=== PATIENT | female | born 1960 | race Caucasian/White ===

== ENCOUNTER 2017-12-22 09:07 | Emergency (ER) | payer BC, OTHER ==
[2017-12-22 09:33] LABS: ABS Basophils 0 10^3/ul (0-0.2); ABS Eosinophils 0.1 10^3/ul (0-0.6); ABS Lymphocytes 0.7 10^3/ul (1.0-4.8); ABS Monocytes 0.8 10^3/ul (0-0.8); ABS Neutrophils 11.4 10^3/ul (1.5-7.7); ABS Nucleated RBC 0 10^3/ul; Eosinophil % 0.4 % (0-6); Hematocrit 40 % (35-47); Hemoglobin 13.3 g/dl (12.0-16.0); Lymphocyte % 5.6 % (25-47); Mean Corpuscular HGB Conc 33 g/dl (31-36); Mean Corpuscular Hemoglobin 27 pg (27-31); Mean Corpuscular Volume 81 fL (80-97); Mean Platelet Volume 7 um3 (7.4-10.4); Nucleated Red Blood Cells % 0.1; Platelet Count 231 10^3/ul (150-450); Red Blood Count 4.92 10^6/ul (4.0-5.4); Red Cell Distribution Width 14 % (10.5-15)
[2017-12-22 09:49] LABS: EGFR Non-African American 79.6 (>60)
--- NOTE | 2017-12-22 10:11 | RAD ---
INDICATION: Chest pain COMPARISON: None TECHNIQUE: An AP portable view obtained at 0950 hours is submitted. FINDINGS: Bones/Soft Tissues: There are no acute bony findings. Cardiomediastinal: The cardiomediastinal silhouette is normal. Lungs: There are no infiltrates. Pleura: There are no pleural effusions. Other: None IMPRESSION: NO ACTIVE DISEASE
[2017-12-22] MEDS ORDERED: Ketorolac INJ* 30 MG/ML 1 ML VIAL IV PUSH ONE (10:44)
[2017-12-22 11:06] VITALS: BP 113/71
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
== END 2017-12-22 11:11 | disposition home or self-care (01) ==
LOC: ED 09:07
DX: R07.89 Other chest pain (principal); F17.210 Nicotine dependence, cigarettes, uncomplicated
CPT/HCPCS: 36415; 71045; 80053; 82550; 82553; 83605; 83735; 83874; 83880; 84484; 85025; 85379; 85730; 87502; 93005; 96374; 99283; J1885

== ENCOUNTER 2017-12-23 01:57 | Inpatient (IN) | payer OTHER ==
[2017-12-23] MEDS ORDERED: NS 0.9% 1000 ML* 1,000 ML IV ONE (02:35)
[2017-12-23] MEDS ORDERED: Morphine INJ* 4 MG/ML 1 ML CARPUJECT IV ONE (02:38)
[2017-12-23] MEDS ORDERED: Ondansetron INJ* 2 MG/ML VIAL IV ONE (02:38)
[2017-12-23] MEDS ORDERED: Aspirin TAB* 325 MG PO ONE (02:39)
[2017-12-23 03:26] LABS: ABS Basophils 0 10^3/ul (0-0.2); ABS Eosinophils 0.1 10^3/ul (0-0.6); ABS Lymphocytes 0.6 10^3/ul (1.0-4.8); ABS Monocytes 1.1 10^3/ul (0-0.8); ABS Neutrophils 12.4 10^3/ul (1.5-7.7); ABS Nucleated RBC 0 10^3/ul; Hematocrit 38 % (35-47); Hemoglobin 12.9 g/dl (12.0-16.0); Lymphocyte % 4.2 % (25-47); Mean Corpuscular HGB Conc 34 g/dl (31-36); Mean Corpuscular Hemoglobin 27 pg (27-31); Mean Corpuscular Volume 81 fL (80-97); Mean Platelet Volume 8 um3 (7.4-10.4); Nucleated Red Blood Cells % 0; Platelet Count 236 10^3/ul (150-450); Red Blood Count 4.72 10^6/ul (4.0-5.4); Red Cell Distribution Width 14 % (10.5-15); White Blood Count 14.2 10^3/ul (3.5-10.8)
[2017-12-23 03:45] LABS: INR 1.12 (0.77-1.02)
[2017-12-23] MEDS ORDERED: Morphine INJ* 2 MG/ML 1 ML CARPUJECT IV ONE (04:51)
[2017-12-23] MEDS ORDERED: Senna TAB PO PRN (05:03)
[2017-12-23] MEDS ORDERED: Al Hydrox/Mg Hydrox/Simet LIQ* 30 ML UDC PO PRN ×2 (05:03→06:06)
[2017-12-23] MEDS ORDERED: Ondansetron INJ* 2 MG/ML VIAL IV PRN ×2 (05:03→06:06)
[2017-12-23] MEDS ORDERED: Docusate CAP* 100 MG PO PRN (05:03)
[2017-12-23 05:21] LABS: Urine Appearance Cloudy; Urine Blood Negative (Negative); Urine Color Amber; Urine Ketones 1+ (Negative); Urine Protein 1+(30 mg/dL) (Negative); Urine Specific Gravity 1.026 (1.010-1.030); Urine Urobilinogen Negative (Negative)
[2017-12-23] MEDS ORDERED: cefTRIAXone(*) 1 GM in NS 0.9% 50 ML* 50 ML IVPB ONE (05:33)
[2017-12-23] MEDS ORDERED: Azithromycin IV(*) 500 MG in NS 0.9% 250 ML* 250 ML IVPB ONE (05:34)
[2017-12-23 06:05] LABS: EGFR Non-African American 79.6 (>60)
[2017-12-23] MEDS ORDERED: Albuterol 2.5 MG/3 ML NEB.SOL* (0.083%) INH PRN (06:06)
[2017-12-23] MEDS ORDERED: Morphine INJ* 2 MG/ML 1 ML CARPUJECT IV PRN (06:06)
[2017-12-23] MEDS ORDERED: Ketorolac INJ* 30 MG/ML 1 ML VIAL IV PUSH ONE (06:09)
--- NOTE | 2017-12-23 06:45 | ED ---
Saumya Iqbal Thomas, scribed for Hiram Rodriguez on 12/23/17 at 0233 . HPI Chest Pain - HPI Summary HPI Summary: The patient is a 57 year old female presenting to the emergency department complaining of lower left-sided chest pain that began two days ago. The pain is severe. She was a patient at [facility] [place] and discharged home. The pain is aggravated by palpation and deep breaths. The patient has treated the symptoms with Naproxen prior to arrival. The patient additionally complains of headache. She denies edema. - History of Current Complaint Chief Complaint: EDChestWallPain Time Seen by Provider: 12/23/17 02:27 Hx Obtained From: Patient Onset/Duration: Started Days Ago - 2, Still Present Timing: Constant Current Severity: Severe Pain Intensity: 8 Pain Scale Used: 0-10 Numeric Chest Pain Location: Discrete at: - lower left-sided chest pain Aggravating Factor(s): Deep Breaths, Other: - Palpation Alleviating Factor(s): Nothing Associated Signs and Symptoms: Positive: Chest Pain, Other: - Headache; NEGATIVE : edema - Allergy/Home Medications Allergies/Adverse Reactions: Allergies Allergy/AdvReac Type Severity Reaction Status Date / Time No Known Allergies Allergy Verified 03/11/14 09:00 PMH/Surg Hx/FS Hx/Imm Hx Endocrine/Hematology History: Denies: Hx Diabetes Cardiovascular History: Denies: Hx Hypertension - Cancer History Hx Chemotherapy: No Hx Radiation Therapy: No - Surgical History Surgery Procedure, Year, and Place: bilateral meniscus and ACL repair Infectious Disease History: No Infectious Disease History: Denies: Traveled Outside the [place] in Last 30 Days - Family History Known Family History: Negative: Hypertension, Diabetes - Social History Alcohol Use: None Substance Use Type: Reports: None Smoking Status (MU): Light Every Day Tobacco Smoker Type: Cigarettes Amount Used/How Often: 1/2 PPD Review of Systems Negative: Fever Positive: Chest Pain Negative: Edema Positive: Headache All Other Systems Reviewed And Are Negative: Yes Physical Exam - Summary Physical Exam Summary: Appearance: Well appearing, no pain distress Skin: warm, dry, reflects adequate perfusion Head/face: normal Eyes: EOMI, ELLIE ENT: normal Neck: supple, non-tender Respiratory: CTA, breath sounds present Cardiovascular: RRR, pulses symmetrical Chest: She is tender to the left chest. Abdomen: Soft. She is tender to the epigastric area. Bowel: present Musculoskeletal: normal, strength/ROM intact Neuro: normal, sensory motor intact, A&Ox3 Triage Information Reviewed: Yes Vital Signs On Initial Exam: Initial Vitals Temp Pulse Resp BP Pulse Ox 98.1 F 102 16 95/72 95 12/23/17 02:05 12/23/17 02:05 12/23/17 02:05 12/23/17 02:05 12/23/17 02:05 Vital Signs Reviewed: Yes Diagnostics - Vital Signs Vital Signs Temp Pulse Resp BP Pulse Ox 12/23/17 02:05 98.1 F 102 16 95/72 95 - Laboratory Lab Results: Lab Results 12/23/17 12/23/17 12/23/17 Range/Units 03:03 03:03 03:03 WBC 14.2 H (3.5-10.8) 10^3/ul RBC 4.72 (4.0-5.4) 10^6/ul Hgb 12.9 (12.0-16.0) g/dl Hct 38 (35-47) % MCV 81 (80-97) fL MCH 27 (27-31) pg MCHC 34 (31-36) g/dl RDW 14 (10.5-15) % Plt Count 236 (150-450) 10^3/ul MPV 8 (7.4-10.4) um3 Neut % (Auto) 87.2 H (38-83) % Lymph % (Auto) 4.2 L (25-47) % Snyder % (Auto) 7.4 (1-9) % Eos % (Auto) 1.0 (0-6) % Baso % (Auto) 0.2 (0-2) % Absolute Neuts (auto) 12.4 H (1.5-7.7) 10^3/ul Absolute Lymphs (auto) 0.6 L (1.0-4.8) 10^3/ul Absolute Monos (auto) 1.1 H (0-0.8) 10^3/ul Absolute Eos (auto) 0.1 (0-0.6) 10^3/ul Absolute Basos (auto) 0 (0-0.2) 10^3/ul Absolute Nucleated RBC 0 10^3/ul Nucleated RBC % 0 INR (Anticoag Therapy) 1.12 H (0.77-1.02) APTT 29.3 (26.0-36.3) seconds D-Dimer, Quantitative < 200 (Less Than 230) ng/mL Sodium 136 (133-145) mmol/L Potassium 3.8 (3.5-5.0) mmol/L Chloride 101 (101-111) mmol/L Carbon Dioxide 25 (22-32) mmol/L Anion Gap 10 (2-11) mmol/L BUN 22 (6-24) mg/dL Creatinine 0.75 (0.51-0.95) mg/dL Est GFR ( Amer) 102.4 (>60) Est GFR (Non-Af Amer) 79.6 (>60) BUN/Creatinine Ratio 29.3 H (8-20) Glucose 115 H (70-100) mg/dL Calcium 9.6 (8.6-10.3) mg/dL Total Bilirubin 1.20 H (0.2-1.0) mg/dL AST 19 (13-39) U/L ALT 15 (7-52) U/L Alkaline Phosphatase 71 (34-104) U/L Troponin I 0.01 (<0.04) ng/mL C-Reactive Protein 258.35 H (< 5.00) mg/L Total Protein 6.9 (6.4-8.9) g/dL Albumin 4.0 (3.2-5.2) g/dL Globulin 2.9 (2-4) g/dL Albumin/Globulin Ratio 1.4 (1-3) Lipase < 10 L (11.0-82.0) U/L Urine Color Urine Appearance Urine pH (5-9) Ur Specific [place] (1.010-1.030) Urine Protein (Negative) Urine Ketones (Negative) Urine Blood (Negative) Urine Nitrate (Negative) Urine Bilirubin (Negative) Urine Urobilinogen (Negative) Ur Leukocyte Esterase (Negative) Urine WBC (Auto) (Absent) Urine RBC (Auto) (Absent) Ur Squamous Epith Cells (Absent) Urine Bacteria (Absent) Urine Glucose (Negative) Urine Ascorbic Acid (Negative) 12/23/17 Range/Units 05:00 WBC (3.5-10.8) 10^3/ul RBC (4.0-5.4) 10^6/ul Hgb (12.0-16.0) g/dl Hct (35-47) % MCV (80-97) fL MCH (27-31) pg MCHC (31-36) g/dl RDW (10.5-15) % Plt Count (150-450) 10^3/ul MPV (7.4-10.4) um3 Neut % (Auto) (38-83) % Lymph % (Auto) (25-47) % Snyder % (Auto) (1-9) % Eos % (Auto) (0-6) % Baso % (Auto) (0-2) % Absolute Neuts (auto) (1.5-7.7) 10^3/ul Absolute Lymphs (auto) (1.0-4.8) 10^3/ul Absolute Monos (auto) (0-0.8) 10^3/ul Absolute Eos (auto) (0-0.6) 10^3/ul Absolute Basos (auto) (0-0.2) 10^3/ul Absolute Nucleated RBC 10^3/ul Nucleated RBC % INR (Anticoag Therapy) (0.77-1.02) APTT (26.0-36.3) seconds D-Dimer, Quantitative (Less Than 230) ng/mL Sodium (133-145) mmol/L Potassium (3.5-5.0) mmol/L Chloride (101-111) mmol/L Carbon Dioxide (22-32) mmol/L Anion Gap (2-11) mmol/L BUN (6-24) mg/dL Creatinine (0.51-0.95) mg/dL Est GFR ( Amer) (>60) Est GFR (Non-Af Amer) (>60) BUN/Creatinine Ratio (8-20) Glucose (70-100) mg/dL Calcium (8.6-10.3) mg/dL Total Bilirubin (0.2-1.0) mg/dL AST (13-39) U/L ALT (7-52) U/L Alkaline Phosphatase (34-104) U/L Troponin I (<0.04) ng/mL C-Reactive Protein (< 5.00) mg/L Total Protein (6.4-8.9) g/dL Albumin (3.2-5.2) g/dL Globulin (2-4) g/dL Albumin/Globulin Ratio (1-3) Lipase (11.0-82.0) U/L Urine Color Frannie Urine Appearance Cloudy Urine pH 5.0 (5-9) Ur Specific [place] 1.026 (1.010-1.030) Urine Protein 1+(30 mg/dl) H (Negative) Urine Ketones 1+ H (Negative) Urine Blood Negative (Negative) Urine Nitrate Negative (Negative) Urine Bilirubin Negative (Negative) Urine Urobilinogen Negative (Negative) Ur Leukocyte Esterase Negative (Negative) Urine WBC (Auto) 1+(6-10/hpf) H (Absent) Urine RBC (Auto) 3+(>10/hpf) H (Absent) Ur Squamous Epith Cells Present H (Absent) Urine Bacteria Absent (Absent) Urine Glucose Negative (Negative) Urine Ascorbic Acid * H (Negative) Result Diagrams: 12/23/17 03:03 12/23/17 03:03 Lab Statement: Any lab studies that have been ordered have been reviewed, and results considered in the medical decision making process. - CT CT Abd/Pel CT Interpretation: No Acute Changes - Small moderate-sized left pleural effusion with compressive atelectasis and/or pneumonia. Small pericardial effusion. Small amount of nonspecific pelvic free fluid, possibly physiologic. Dr. Rodriguez has reviewed this report. CT Interpretation Completed By: Radiologist - EKG 03:12 Cardiac Rate: NL EKG Rhythm: Sinus Rhythm - at 81 BPM EKG Interpretation: No acute changes. Chest Pain Course/Dx - Course Assessment/Plan: The patient is a 57 year old female presenting to the emergency department complaining of lower left-sided chest pain that began two days ago. In the ED course the patient was given ASA, IV fluids, morphine, and Zofran. Bloodwork and urinalysis were obtained. EKG shows sinus rhythm. CT Abd/ Pel shows Small moderate-sized left pleural effusion with compressive atelectasis and/or pneumonia. Small pericardial effusion. Small amount of nonspecific pelvic free fluid, possibly physiologic. The patient is diagnosed with pneumonia, pleural effusion, and chest pain rule out LA. The patient will be admitted by Dr. Franco. - Chest Pain Differential Diagnosis/HQI/PQRI: Acute LA, ACS, Chest Wall, Lower Respiratory Infection, Other: - pneumonia - Diagnoses Provider Diagnoses: Pneumonia, Pleural effusion, Chest pain, rule out acute myocardial infarction - Provider Notifications Discussed Care Of Patient With: Peyton Franco Time Discussed With Above Provider: 06:38 Instructed by Provider To: Admit As Inpatient Discharge - Discharge Plan Condition: Fair Disposition: ADMITTED TO [facility] Discharge Disposition Comment: By Dr. Franco. The documentation as recorded by the Saumya resendez Thomas accurately reflects the service I personally performed and the decisions made by , Hiram Rodriguez.
--- NOTE | 2017-12-23 08:21 | RAD ---
CLINICAL HISTORY: Left chest and flank pain COMPARISON: None TECHNIQUE: Noncontrast CT examination of the abdomen and pelvis from the lung bases through the initial tuberosities. FINDINGS: VISUALIZED LUNG BASES: There is a small left-sided pleural effusion with pleural-based linear density. The lesser extent there is pleural-based linear density at the right lung base with a small pleural-based nodular component. Small pericardial effusion. Bilateral breast prostheses are partially visualized ABDOMEN AND PELVIS: Evaluation of the solid organs and vasculature is limited without intravenous contrast. The liver, spleen, pancreas and adrenal glands are grossly normal in appearance. The gallbladder is normal. The kidneys are normal in appearance without focal mass, calcification or signs of hydronephrosis. Evaluation of the gastrointestinal tract is limited without oral contrast. The small and large bowel are not distended. A 7 mm partially gas-filled structure in the right lower quadrant of the base of the cecum most likely represents the normal appendix. There is a small amount of free fluid in the pelvis. There is no gross retroperitoneal or mesenteric lymphadenopathy. The pelvic viscera is normal in appearance. The abdominal aorta and iliac arteries are normal in course and diameter. Degenerative changes include multilevel loss of intervertebral disc height involving the lower thoracic and lumbar spine.There are no sinister bone lesions. IMPRESSION: 1. Small to moderate left-sided pleural effusion with bibasilar atelectasis. 2. Small pericardial effusion. 3. Small amount of free fluid in the pelvis which could be physiologic in a woman who is still undergoing menstrual cycles. Please correlate to menstrual status.
[2017-12-23] MEDS: oxyCODONE/Acetamin 5/325 MG* TAB PO PRN ×4 (09:04→22:32)
[2017-12-23] MEDS: NS 0.9% 1000 ML* 1,000 ML IV SCH ×2 (09:04→19:30)
--- NOTE | 2017-12-23 10:53 | HP ---
CC: Michelle Arevalo NP HISTORY AND PHYSICAL: DATE OF ADMISSION: 12/23/17 TIME OF EVALUATION: 0600 PRIMARY CARE PHYSICIAN: Michelle Arevalo NP CHIEF COMPLAINT: Left-sided chest pain. HISTORY OF PRESENT ILLNESS: This is a 57-year-old female with an unremarkable past medical history except for tobacco use, who presents to the emergency room for the second time in 2 days for left-sided chest pain. The patient states she had an upper respiratory illness about a week ago. She was taking care of her daughter who was in an MVA and she thinks she overdid it. She had a sore throat and a cough at that time. In the past 2 to 3 days, she is having difficulty taking a deep breath with significant left-sided chest pain. Now, today, she started with a productive cough. She has not been able to smoke in the past 10 days due to her illness. She has had fevers and chills and significant left-sided chest pain, now a shoulder pain on the left side. No shortness of breath. No nausea, vomiting, abdominal pain or diarrhea. No lower extremity swelling. No rash. Otherwise, review of systems is negative. In the emergency room, the patient had labs, imaging, was referred to the hospitalist service for further evaluation. In the ER, she was given aspirin 325 mg, ceftriaxone 1 g, a total of 6 mg of morphine, Zofran 4 mg, and a liter of fluid. PAST MEDICAL HISTORY: Tobacco use. MEDICATIONS: Was prescribed naproxen when she came to the emergency room on . ALLERGIES: No known drug allergies. FAMILY HISTORY: No family history of blood clots. SOCIAL HISTORY: The patient lives alone. 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 She smokes off and on for the past 25 years, recently she is down to 5 to 6 cigarettes per day. Her healthcare proxy is her son, Tian Lugo. No alcohol use or illicit drug use. REVIEW OF SYSTEMS: A 14-point review of systems as mentioned in the HPI; otherwise, negative. PHYSICAL EXAMINATION GENERAL: No acute distress. She appears uncomfortable. VITAL SIGNS: Temp 98.1, pulse rate 98, respiratory rate 18, oxygen saturation 95% on room air, blood pressure 102/64. HEENT: Head normocephalic. Pupils equal and reactive. Anicteric. Oropharynx : Mucous membranes moist. NECK: Supple. No lymphadenopathy. RESPIRATORY: Poor aeration. No increased work of breathing. Faint rhonchi in the left side. CARDIAC: Regular rate and rhythm. Soft systolic murmur heard throughout. ABDOMEN: Soft, nondistended, nontender. EXTREMITIES: No clubbing, cyanosis, or edema. +1 DPs. NEUROLOGIC: Alert and oriented x3. No focal neurological deficits. MUSCULOSKELETAL: The patient with tenderness in intercostal regions on the left side from the posterior, wrapping around intercostally in the mid and upper intercostal regions. DIAGNOSTIC STUDIES/LAB DATA: White count 14.2, hemoglobin 12.9, hematocrit 38 , platelets 236. INR is 1.12. D-dimer is less than 200. Sodium 136, potassium 3.8, chloride 101, bicarb 25, BUN 22, creatinine 0.75, glucose 115. Total bili 1.21. CRP is 258. Troponin is 0.01. Lipase is less than 10. Abdomen and pelvis CT shows small to moderate size left pleural effusion with left basilar atelectasis and/or pneumonia, small pericardial effusion is noted; otherwise, unremarkable. ASSESSMENT: This is a 57-year-old female with past medical history of tobacco use with recent upper respiratory infection illness, now comes in with persistent left- sided chest pain; this is her second ED visit in 2 days. 1. Left-sided chest pain. Assessment: Now, patient with [id number] effusion, likely possibly a parapneumonic effusion. She does have a white count and elevated CRP. I suspect that she had a URI illness and then developed some costochondritis that developed into atelectasis and secondary pneumonia with an effusion. The patient is in a significant amount of discomfort with limited mobility and unable to care for herself. Her D-dimer is negative, which has ruled out pulmonary emboli. Plan: We will admit her to telemetry to continue to trend her troponin. We will start her on Toradol and morphine, IV fluids. Continue on azithromycin and ceftriaxone for community-acquired pneumonia. We will check a procalcitonin. I did put in for an ultrasound thoracentesis for diagnostic and possible therapeutic benefit. We will also swab her for influenza. Incentive spirometer. 2. Chronic medical problem: Tobacco use. The patient has not smoked in 10 days. No indication for inhaler. 3. FEN: Place her on a regular diet. 4. DVT prophylaxis: The patient scored low risk. We will encourage ambulation. 5. Code status: Full code. PATIENT TIME: Greater than 60 minutes spent doing the history and physical, more than half time spent in direct patient contact. [id number]/CPS #: [id number] MTDD
--- NOTE | 2017-12-23 12:10 | PN ---
Hospitalist Progress Note Date of Service: 12/23/17 I have seen and examined Ms. Lugo and assume her care today. She feels a little better this morning after receiving percocet. She continues to complain of a productive cough and left sided chest wall pain in the midaxillary line with inspiration. Pain is unchanged with position, and she has been afebrile overnight. On exam, she is in a regular rate and rhythm without a pericardial rub, her lungs are clear, and there is no point tenderness on her ribs. She has no pharyngeal exudates or cervical lymphadenopathy or JVP. A/P: Ms. Lugo presents with left sided chest wall pain with inspiration and a recent viral syndrome. Her history is consistent with viral pleurisy, and I will continue to treat her with supportive measures at this time. With this history, there isn't yet an indication for a thoracentesis, but I explained that she should have a repeat CT in 4-6 weeks to re-evaluate it. She follows with [facility]. I have low suspicion for an empyema that would warrant thoracentesis/chest tube. Check sputum cultures, though her history seems viral. Check flu swab, continue pain control.
[2017-12-24] MEDS: oxyCODONE/Acetamin 5/325 MG* TAB PO PRN ×2 (03:43→09:44)
[2017-12-24] MEDS: NS 0.9% 1000 ML* 1,000 ML IV SCH ×2 (03:45→15:38)
[2017-12-24] MEDS: Senna TAB PO PRN ×2 (03:51→15:47)
[2017-12-24] MEDS: Docusate CAP* 100 MG PO PRN ×2 (03:51→15:48)
[2017-12-24] MEDS: Ketorolac INJ* 30 MG/ML 1 ML VIAL IV PUSH PRN ×2 (03:52→15:37)
[2017-12-24] MEDS: cefTRIAXone(*) 1 GM in NS 0.9% 50 ML* 50 ML IVPB SCH (05:34)
[2017-12-24 05:58] LABS: ABS Basophils 0 10^3/ul (0-0.2); ABS Eosinophils 0.2 10^3/ul (0-0.6); ABS Lymphocytes 0.5 10^3/ul (1.0-4.8); ABS Monocytes 1.2 10^3/ul (0-0.8); ABS Neutrophils 11.4 10^3/ul (1.5-7.7); ABS Nucleated RBC 0 10^3/ul; Eosinophil % 1.3 % (0-6); Hematocrit 35 % (35-47); Hemoglobin 11.6 g/dl (12.0-16.0); Lymphocyte % 3.6 % (25-47); Mean Corpuscular HGB Conc 33 g/dl (31-36); Mean Corpuscular Hemoglobin 27 pg (27-31); Mean Corpuscular Volume 82 fL (80-97); Mean Platelet Volume 8 um3 (7.4-10.4); Nucleated Red Blood Cells % 0; Platelet Count 220 10^3/ul (150-450); Red Blood Count 4.31 10^6/ul (4.0-5.4); Red Cell Distribution Width 14 % (10.5-15); White Blood Count 13.3 10^3/ul (3.5-10.8)
[2017-12-24] MEDS: Azithromycin IV(*) 250 MG in NS 0.9% 250 ML* 250 ML IVPB SCH (06:08)
[2017-12-24 06:09] LABS: EGFR Non-African American 97.4 (>60)
[2017-12-24] MEDS: Acetaminophen TAB* 325 MG PO PRN (15:37)
--- NOTE | 2017-12-24 16:54 | RAD ---
INDICATION: Effusion. COMPARISON: Comparison is made with a prior chest x-ray study from December 22, [address] of the abdomen and pelvis from December 23, 2017. TECHNIQUE: 2 portable films of the chest were obtained upright. FINDINGS: The left heart border is obscured by a left pleural effusion and infiltrate present in the mid and lower left lung field appears new from the prior chest x-ray study. The right lung appears clear. IMPRESSION: NEW MODERATE-SIZED LEFT PLEURAL EFFUSION AND INFILTRATE. RECOMMEND FOLLOW-UP CHEST X-RAYS TO RESOLUTION.
[2017-12-24] MEDS: ALPRAZolam TAB* 0.25 MG PO PRN (20:28)
[2017-12-25] MEDS: Ketorolac INJ* 30 MG/ML 1 ML VIAL IV PUSH PRN ×2 (00:39→11:44)
[2017-12-25] MEDS: cefTRIAXone(*) 1 GM in NS 0.9% 50 ML* 50 ML IVPB SCH (05:55)
[2017-12-25] MEDS: Azithromycin IV(*) 250 MG in NS 0.9% 250 ML* 250 ML IVPB SCH (07:27)
[2017-12-25] MEDS: Docusate CAP* 100 MG PO PRN (07:27)
[2017-12-25] MEDS: oxyCODONE/Acetamin 5/325 MG* TAB PO PRN (07:27)
[2017-12-25] MEDS: Senna TAB PO PRN (07:27)
--- NOTE | 2017-12-25 08:44 | PN ---
Progress Note - Progress Note Date of Service: 12/25/17 Note: Brief Surgical Note: Patient was seen at bedside by request of Dr. Garza for evaluation of left pleural effusion. Reports left pleuritic chest pain, worse with deep inspiration. Denies SOB, substernal chest pain, fever or chills. Has had some productive cough. CXR yesterday with increased left pleural effusion noted. Lungs with decreased breath sounds at left lower base, but no rales or rhonchi. Labs noted Imp/Plan: Left pleural effusion of unclear etiology. Will discuss with Dr. Richter Likely to proceed with left thoracocentesis today, patient understands and agrees to plans
--- NOTE | 2017-12-25 16:09 | RAD ---
INDICATION: Status post thoracentesis. COMPARISON: Comparison is made with a prior chest x-ray study from December 24, 2017. TECHNIQUE: A portable view of the chest was obtained. FINDINGS: The left heart border is obscured by a dense infiltrate and pleural effusion. There is an infiltrate in the mid and lower left lung field which appears unchanged and suggestion of a pleural effusion. No pneumothorax is seen. IMPRESSION: LEFT LUNG INFILTRATE AND PLEURAL EFFUSION, UNCHANGED. RECOMMEND FOLLOW-UP CHEST X-RAYS TO RESOLUTION.
[2017-12-25] MEDS: Acetaminophen TAB* 325 MG PO PRN (16:35)
--- NOTE | 2017-12-25 17:04 | PN ---
Subjective Date of Service: 12/24/17 Interval History: still with pain with deep inspiration that is not controlled on percocet. She is tearful, anxious. Her ring had to be cut off this morning because she was so anxious about it being stuck on. Family History: Unchanged from Admission Social History: Unchanged from Admission Past Medical History: Unchanged from Admission Objective Active Medications: Acetaminophen (Tylenol Tab*) 650 mg PO Q4H PRN PRN Reason: FEVER/PAIN Last Admin: 12/25/17 16:35 Dose: 650 mg Al Hydrox/Mg Hydrox/Simethicone (Maalox Plus*) 30 ml PO Q6H PRN PRN Reason: INDIGESTION Albuterol (Ventolin 2.5 Mg/3 Ml Neb.Nohelia*) 2.5 mg INH [id number] AWAKE PRN PRN Reason: sob/wheezing Alprazolam (Xanax Tab*) 0.25 mg PO Q8H PRN PRN Reason: ANXIETY Last Admin: 12/24/17 20:28 Dose: 0.25 mg Docusate Sodium (Colace Cap*) 100 mg PO BID PRN PRN Reason: CONSTIPATION Last Admin: 12/25/17 07:27 Dose: 100 mg Ceftriaxone Sodium 1 gm/ (Sodium Chloride) 50 mls @ 200 mls/hr IVPB Q24H [facility] Last Admin: 12/25/17 05:55 Dose: 200 mls/hr Azithromycin 250 mg/ Sodium (Chloride) 250 mls @ 250 mls/hr IVPB Q24H [facility] Last Admin: 12/25/17 07:27 Dose: 250 mls/hr Ketorolac Tromethamine (Toradol Inj*) 30 mg IV PUSH Q6H PRN PRN Reason: PAIN Last Admin: 12/25/17 11:44 Dose: 30 mg Morphine Sulfate (Morphine Inj (Syringe)*) 2 mg IV Q4H PRN PRN Reason: PAIN Ondansetron HCl (Zofran Inj*) 4 mg IV Q4H PRN PRN Reason: NAUSEA/VOMITING Oxycodone/Acetaminophen (Percocet 5/325 Tab*) 1 tab PO Q4H PRN PRN Reason: Pain Last Admin: 12/25/17 07:27 Dose: 1 tab Senna (Senokot Tab*) 1 tab PO BID PRN PRN Reason: CONSTIPATION Last Admin: 12/25/17 07:27 Dose: 1 tab Oxygen Devices in Use Now: None Appearance: no distress, nontoxic Eyes: No Scleral Icterus Ears/Nose/Mouth/Throat: NL Teeth, Lips, Gums Neck: NL Appearance and Movements; NL JVP Respiratory: - - decreased breath sounds right lower lung field [facility] up Cardiovascular: RRR Abdominal: NL Sounds; No Tenderness; No Distention Lymphatic: No Cervical Adenopathy Result Diagrams: 12/24/17 05:21 12/24/17 05:21 Additional Lab and Data: Lab Results 12/23/17 12/23/17 12/23/17 Range/Units 03:03 03:03 03:03 WBC 14.2 H (3.5-10.8) 10^3/ul RBC 4.72 (4.0-5.4) 10^6/ul Hgb 12.9 (12.0-16.0) g/dl Hct 38 (35-47) % MCV 81 (80-97) fL MCH 27 (27-31) pg MCHC 34 (31-36) g/dl RDW 14 (10.5-15) % Plt Count 236 (150-450) 10^3/ul MPV 8 (7.4-10.4) um3 Neut % (Auto) 87.2 H (38-83) % Lymph % (Auto) 4.2 L (25-47) % [place] % (Auto) 7.4 (1-9) % Eos % (Auto) 1.0 (0-6) % Baso % (Auto) 0.2 (0-2) % Absolute Neuts (auto) 12.4 H (1.5-7.7) 10^3/ul Absolute Lymphs (auto) 0.6 L (1.0-4.8) 10^3/ul Absolute Monos (auto) 1.1 H (0-0.8) 10^3/ul Absolute Eos (auto) 0.1 (0-0.6) 10^3/ul Absolute Basos (auto) 0 (0-0.2) 10^3/ul Absolute Nucleated RBC 0 10^3/ul Nucleated RBC % 0 INR (Anticoag Therapy) 1.12 H (0.77-1.02) APTT 29.3 (26.0-36.3) seconds D-Dimer, Quantitative < 200 (Less Than 230) ng/mL Sodium 136 (133-145) mmol/L Potassium 3.8 (3.5-5.0) mmol/L Chloride 101 (101-111) mmol/L Carbon Dioxide 25 (22-32) mmol/L Anion Gap 10 (2-11) mmol/L BUN 22 (6-24) mg/dL Creatinine 0.75 (0.51-0.95) mg/dL Est GFR ( Amer) 102.4 (>60) Est GFR (Non-Af Amer) 79.6 (>60) BUN/Creatinine Ratio 29.3 H (8-20) Glucose 115 H (70-100) mg/dL Calcium 9.6 (8.6-10.3) mg/dL Total Bilirubin 1.20 H (0.2-1.0) mg/dL AST 19 (13-39) U/L ALT 15 (7-52) U/L Alkaline Phosphatase 71 (34-104) U/L Troponin I 0.01 (<0.04) ng/mL C-Reactive Protein 258.35 H (< 5.00) mg/L Total Protein 6.9 (6.4-8.9) g/dL Albumin 4.0 (3.2-5.2) g/dL Globulin 2.9 (2-4) g/dL Albumin/Globulin Ratio 1.4 (1-3) Lipase < 10 L (11.0-82.0) U/L Urine Color Urine Appearance Urine pH (5-9) Ur Specific [place] (1.010-1.030) Urine Protein (Negative) Urine Ketones (Negative) Urine Blood (Negative) Urine Nitrate (Negative) Urine Bilirubin (Negative) Urine Urobilinogen (Negative) Ur Leukocyte Esterase (Negative) Urine WBC (Auto) (Absent) Urine RBC (Auto) (Absent) Ur Squamous Epith Cells (Absent) Urine Bacteria (Absent) Urine Glucose (Negative) Urine Ascorbic Acid (Negative) 12/23/17 Range/Units 05:00 WBC (3.5-10.8) 10^3/ul RBC (4.0-5.4) 10^6/ul Hgb (12.0-16.0) g/dl Hct (35-47) % MCV (80-97) fL MCH (27-31) pg MCHC (31-36) g/dl RDW (10.5-15) % Plt Count (150-450) 10^3/ul MPV (7.4-10.4) um3 Neut % (Auto) (38-83) % Lymph % (Auto) (25-47) % [place] % (Auto) (1-9) % Eos % (Auto) (0-6) % Baso % (Auto) (0-2) % Absolute Neuts (auto) (1.5-7.7) 10^3/ul Absolute Lymphs (auto) (1.0-4.8) 10^3/ul Absolute Monos (auto) (0-0.8) 10^3/ul Absolute Eos (auto) (0-0.6) 10^3/ul Absolute Basos (auto) (0-0.2) 10^3/ul Absolute Nucleated RBC 10^3/ul Nucleated RBC % INR (Anticoag Therapy) (0.77-1.02) APTT (26.0-36.3) seconds D-Dimer, Quantitative (Less Than 230) ng/mL Sodium (133-145) mmol/L Potassium (3.5-5.0) mmol/L Chloride (101-111) mmol/L Carbon Dioxide (22-32) mmol/L Anion Gap (2-11) mmol/L BUN (6-24) mg/dL Creatinine (0.51-0.95) mg/dL Est GFR ( Amer) (>60) Est GFR (Non-Af Amer) (>60) BUN/Creatinine Ratio (8-20) Glucose (70-100) mg/dL Calcium (8.6-10.3) mg/dL Total Bilirubin (0.2-1.0) mg/dL AST (13-39) U/L ALT (7-52) U/L Alkaline Phosphatase (34-104) U/L Troponin I (<0.04) ng/mL C-Reactive Protein (< 5.00) mg/L Total Protein (6.4-8.9) g/dL Albumin (3.2-5.2) g/dL Globulin (2-4) g/dL Albumin/Globulin Ratio (1-3) Lipase (11.0-82.0) U/L Urine Color Frannie Urine Appearance Cloudy Urine pH 5.0 (5-9) Ur Specific [place] 1.026 (1.010-1.030) Urine Protein 1+(30 mg/dl) H (Negative) Urine Ketones 1+ H (Negative) Urine Blood Negative (Negative) Urine Nitrate Negative (Negative) Urine Bilirubin Negative (Negative) Urine Urobilinogen Negative (Negative) Ur Leukocyte Esterase Negative (Negative) Urine WBC (Auto) 1+(6-10/hpf) H (Absent) Urine RBC (Auto) 3+(>10/hpf) H (Absent) Ur Squamous Epith Cells Present H (Absent) Urine Bacteria Absent (Absent) Urine Glucose Negative (Negative) Urine Ascorbic Acid * H (Negative) Assess/Plan/Problems-Billing Assessment: - Patient Problems (1) Pleural effusion Current Visit: Yes Status: Acute Code(s): J90 - PLEURAL EFFUSION, NOT ELSEWHERE CLASSIFIED SNOMED Code(s): 81580509 Comment: Thought to be viral pleurisy, but pain is ongoing, she has some orthopnea, I think it's worthwhile to pursue a thoracentesis tomorrow, especially given her smoking history so we can check cytology. Remains nontoxic ; doubt empyema. (2) Anxiety Current Visit: Yes Status: Acute Code(s): F41.9 - ANXIETY DISORDER, UNSPECIFIED SNOMED Code(s): 50525649 Comment: she declines medications; will add xanax prn
--- NOTE | 2017-12-25 17:06 | PN ---
Subjective Date of Service: 12/25/17 Interval History: Still with severe pain on inspiration, 5 pillow orthopnea. I saw her again after her thoracentesis, and she is feeling much better, able to take a full breath Family History: Unchanged from Admission Social History: Unchanged from Admission Past Medical History: Unchanged from Admission Objective Active Medications: Acetaminophen (Tylenol Tab*) 650 mg PO Q4H PRN PRN Reason: FEVER/PAIN Last Admin: 12/25/17 16:35 Dose: 650 mg Al Hydrox/Mg Hydrox/Simethicone (Maalox Plus*) 30 ml PO Q6H PRN PRN Reason: INDIGESTION Albuterol (Ventolin 2.5 Mg/3 Ml Neb.Nohelia*) 2.5 mg INH [id number] AWAKE PRN PRN Reason: sob/wheezing Alprazolam (Xanax Tab*) 0.25 mg PO Q8H PRN PRN Reason: ANXIETY Last Admin: 12/24/17 20:28 Dose: 0.25 mg Docusate Sodium (Colace Cap*) 100 mg PO BID PRN PRN Reason: CONSTIPATION Last Admin: 12/25/17 07:27 Dose: 100 mg Ceftriaxone Sodium 1 gm/ (Sodium Chloride) 50 mls @ 200 mls/hr IVPB Q24H [facility] Last Admin: 12/25/17 05:55 Dose: 200 mls/hr Azithromycin 250 mg/ Sodium (Chloride) 250 mls @ 250 mls/hr IVPB Q24H [facility] Last Admin: 12/25/17 07:27 Dose: 250 mls/hr Ketorolac Tromethamine (Toradol Inj*) 30 mg IV PUSH Q6H PRN PRN Reason: PAIN Last Admin: 12/25/17 11:44 Dose: 30 mg Morphine Sulfate (Morphine Inj (Syringe)*) 2 mg IV Q4H PRN PRN Reason: PAIN Ondansetron HCl (Zofran Inj*) 4 mg IV Q4H PRN PRN Reason: NAUSEA/VOMITING Oxycodone/Acetaminophen (Percocet 5/325 Tab*) 1 tab PO Q4H PRN PRN Reason: Pain Last Admin: 12/25/17 07:27 Dose: 1 tab Senna (Senokot Tab*) 1 tab PO BID PRN PRN Reason: CONSTIPATION Last Admin: 12/25/17 07:27 Dose: 1 tab Oxygen Devices in Use Now: None Appearance: alert, nontoxic Eyes: No Scleral Icterus Ears/Nose/Mouth/Throat: NL Teeth, Lips, Gums Neck: NL Appearance and Movements; NL JVP Respiratory: Symmetrical Chest Expansion and Respiratory Effort, Clear to Auscultation Cardiovascular: NL Sounds; No Murmurs; No JVD, RRR Abdominal: NL Sounds; No Tenderness; No Distention Lymphatic: No Cervical Adenopathy Extremities: No Edema Neurological: Alert and Oriented x 3 Result Diagrams: 12/24/17 05:21 12/24/17 05:21 Additional Lab and Data: Lab Results 12/23/17 12/23/17 12/23/17 Range/Units 03:03 03:03 03:03 WBC 14.2 H (3.5-10.8) 10^3/ul RBC 4.72 (4.0-5.4) 10^6/ul Hgb 12.9 (12.0-16.0) g/dl Hct 38 (35-47) % MCV 81 (80-97) fL MCH 27 (27-31) pg MCHC 34 (31-36) g/dl RDW 14 (10.5-15) % Plt Count 236 (150-450) 10^3/ul MPV 8 (7.4-10.4) um3 Neut % (Auto) 87.2 H (38-83) % Lymph % (Auto) 4.2 L (25-47) % [place] % (Auto) 7.4 (1-9) % Eos % (Auto) 1.0 (0-6) % Baso % (Auto) 0.2 (0-2) % Absolute Neuts (auto) 12.4 H (1.5-7.7) 10^3/ul Absolute Lymphs (auto) 0.6 L (1.0-4.8) 10^3/ul Absolute Monos (auto) 1.1 H (0-0.8) 10^3/ul Absolute Eos (auto) 0.1 (0-0.6) 10^3/ul Absolute Basos (auto) 0 (0-0.2) 10^3/ul Absolute Nucleated RBC 0 10^3/ul Nucleated RBC % 0 INR (Anticoag Therapy) 1.12 H (0.77-1.02) APTT 29.3 (26.0-36.3) seconds D-Dimer, Quantitative < 200 (Less Than 230) ng/mL Sodium 136 (133-145) mmol/L Potassium 3.8 (3.5-5.0) mmol/L Chloride 101 (101-111) mmol/L Carbon Dioxide 25 (22-32) mmol/L Anion Gap 10 (2-11) mmol/L BUN 22 (6-24) mg/dL Creatinine 0.75 (0.51-0.95) mg/dL Est GFR ( Amer) 102.4 (>60) Est GFR (Non-Af Amer) 79.6 (>60) BUN/Creatinine Ratio 29.3 H (8-20) Glucose 115 H (70-100) mg/dL Calcium 9.6 (8.6-10.3) mg/dL Total Bilirubin 1.20 H (0.2-1.0) mg/dL AST 19 (13-39) U/L ALT 15 (7-52) U/L Alkaline Phosphatase 71 (34-104) U/L Troponin I 0.01 (<0.04) ng/mL C-Reactive Protein 258.35 H (< 5.00) mg/L Total Protein 6.9 (6.4-8.9) g/dL Albumin 4.0 (3.2-5.2) g/dL Globulin 2.9 (2-4) g/dL Albumin/Globulin Ratio 1.4 (1-3) Lipase < 10 L (11.0-82.0) U/L Urine Color Urine Appearance Urine pH (5-9) Ur Specific [place] (1.010-1.030) Urine Protein (Negative) Urine Ketones (Negative) Urine Blood (Negative) Urine Nitrate (Negative) Urine Bilirubin (Negative) Urine Urobilinogen (Negative) Ur Leukocyte Esterase (Negative) Urine WBC (Auto) (Absent) Urine RBC (Auto) (Absent) Ur Squamous Epith Cells (Absent) Urine Bacteria (Absent) Urine Glucose (Negative) Urine Ascorbic Acid (Negative) 12/23/17 Range/Units 05:00 WBC (3.5-10.8) 10^3/ul RBC (4.0-5.4) 10^6/ul Hgb (12.0-16.0) g/dl Hct (35-47) % MCV (80-97) fL MCH (27-31) pg MCHC (31-36) g/dl RDW (10.5-15) % Plt Count (150-450) 10^3/ul MPV (7.4-10.4) um3 Neut % (Auto) (38-83) % Lymph % (Auto) (25-47) % [place] % (Auto) (1-9) % Eos % (Auto) (0-6) % Baso % (Auto) (0-2) % Absolute Neuts (auto) (1.5-7.7) 10^3/ul Absolute Lymphs (auto) (1.0-4.8) 10^3/ul Absolute Monos (auto) (0-0.8) 10^3/ul Absolute Eos (auto) (0-0.6) 10^3/ul Absolute Basos (auto) (0-0.2) 10^3/ul Absolute Nucleated RBC 10^3/ul Nucleated RBC % INR (Anticoag Therapy) (0.77-1.02) APTT (26.0-36.3) seconds D-Dimer, Quantitative (Less Than 230) ng/mL Sodium (133-145) mmol/L Potassium (3.5-5.0) mmol/L Chloride (101-111) mmol/L Carbon Dioxide (22-32) mmol/L Anion Gap (2-11) mmol/L BUN (6-24) mg/dL Creatinine (0.51-0.95) mg/dL Est GFR ( Amer) (>60) Est GFR (Non-Af Amer) (>60) BUN/Creatinine Ratio (8-20) Glucose (70-100) mg/dL Calcium (8.6-10.3) mg/dL Total Bilirubin (0.2-1.0) mg/dL AST (13-39) U/L ALT (7-52) U/L Alkaline Phosphatase (34-104) U/L Troponin I (<0.04) ng/mL C-Reactive Protein (< 5.00) mg/L Total Protein (6.4-8.9) g/dL Albumin (3.2-5.2) g/dL Globulin (2-4) g/dL Albumin/Globulin Ratio (1-3) Lipase (11.0-82.0) U/L Urine Color Frannie Urine Appearance Cloudy Urine pH 5.0 (5-9) Ur Specific [place] 1.026 (1.010-1.030) Urine Protein 1+(30 mg/dl) H (Negative) Urine Ketones 1+ H (Negative) Urine Blood Negative (Negative) Urine Nitrate Negative (Negative) Urine Bilirubin Negative (Negative) Urine Urobilinogen Negative (Negative) Ur Leukocyte Esterase Negative (Negative) Urine WBC (Auto) 1+(6-10/hpf) H (Absent) Urine RBC (Auto) 3+(>10/hpf) H (Absent) Ur Squamous Epith Cells Present H (Absent) Urine Bacteria Absent (Absent) Urine Glucose Negative (Negative) Urine Ascorbic Acid * H (Negative) Assess/Plan/Problems-Billing Assessment: - Patient Problems (1) Pleural effusion Current Visit: Yes Status: Acute Code(s): J90 - PLEURAL EFFUSION, NOT ELSEWHERE CLASSIFIED SNOMED Code(s): 05920166 Comment: New, s/p thoracentesis today; 800ccs removed. Sent for cell count, glucose, total protein, culture, and cytology. Continue CAP abx for concern for parapneumonic effusion, will follow up studies tomorrow. (2) Anxiety Current Visit: Yes Status: Acute Code(s): F41.9 - ANXIETY DISORDER, UNSPECIFIED SNOMED Code(s): 68903538 Comment: karl diop
[2017-12-26] MEDS: cefTRIAXone(*) 1 GM in NS 0.9% 50 ML* 50 ML IVPB SCH (05:33)
[2017-12-26] MEDS: Acetaminophen TAB* 325 MG PO PRN ×3 (07:26→23:35)
[2017-12-26] MEDS: Senna TAB PO PRN (07:26)
[2017-12-26] MEDS: Docusate CAP* 100 MG PO PRN (07:26)
[2017-12-26] MEDS: Azithromycin IV(*) 250 MG in NS 0.9% 250 ML* 250 ML IVPB SCH (07:27)
[2017-12-26] MEDS: Clindamycin 600 MG IVPREMIX(* 600 MG/50 ML SDV IV SCH ×2 (12:26→20:45)
--- NOTE | 2017-12-26 15:26 | RAD ---
HISTORY: Effusion COMPARISONS: December 25, 2017 VIEWS: 1: frontal portable view of the chest at 2:58 PM FINDINGS: LINES AND TUBES: None. CARDIOMEDIASTINAL SILHOUETTE: The cardiomediastinal silhouette is normal for portable technique. PLEURA: There is moderate left pleural effusion, decreased in size in the previous examination. LUNG PARENCHYMA: There is left perihilar and lower lung confluent opacification ABDOMEN: The upper abdomen is clear. There is no subphrenic gas. BONES AND SOFT TISSUES: No bone or soft tissue abnormalities are noted. IMPRESSION: 1. LEFT PLEURAL EFFUSION. 2. THERE IS LEFT PERIHILAR AND LOWER LUNG OPACIFICATION. THE DIFFERENTIAL INCLUDES CONSOLIDATION, THOUGH THE APPEARANCE IS ALSO CONCERNING FOR LUNG PARENCHYMAL NEOPLASM. CONSIDER FURTHER EVALUATION WITH CONTRAST-ENHANCED CT OF THE CHEST.
--- NOTE | 2017-12-26 15:40 | PN ---
Subjective Date of Service: 12/26/17 Interval History: Still feels "like crap." No improvement in her symptoms after the thoracentesis yesterday. Feels feverish with a headache, productive cough. Family History: Unchanged from Admission Social History: Unchanged from Admission Past Medical History: Unchanged from Admission Objective Active Medications: Acetaminophen (Tylenol Tab*) 650 mg PO Q4H PRN PRN Reason: FEVER/PAIN Last Admin: 12/26/17 14:33 Dose: 650 mg Al Hydrox/Mg Hydrox/Simethicone (Maalox Plus*) 30 ml PO Q6H PRN PRN Reason: INDIGESTION Albuterol (Ventolin 2.5 Mg/3 Ml Neb.Nohelia*) 2.5 mg INH [id number] AWAKE PRN PRN Reason: sob/wheezing Alprazolam (Xanax Tab*) 0.25 mg PO Q8H PRN PRN Reason: ANXIETY Last Admin: 12/24/17 20:28 Dose: 0.25 mg Docusate Sodium (Colace Cap*) 100 mg PO BID PRN PRN Reason: CONSTIPATION Last Admin: 12/26/17 07:26 Dose: 100 mg Clindamycin HCl/Dextrose (Cleocin 600 Mg Ivpremix(*) Sdv) 600 mg in 50 mls @ 100 mls/hr IV Q8H ROSARIO Last Admin: 12/26/17 12:26 Dose: 100 mls/hr Ketorolac Tromethamine (Toradol Inj*) 30 mg IV PUSH Q6H PRN PRN Reason: PAIN Last Admin: 12/25/17 11:44 Dose: 30 mg Morphine Sulfate (Morphine Inj (Syringe)*) 2 mg IV Q4H PRN PRN Reason: PAIN Ondansetron HCl (Zofran Inj*) 4 mg IV Q4H PRN PRN Reason: NAUSEA/VOMITING Oxycodone/Acetaminophen (Percocet 5/325 Tab*) 1 tab PO Q4H PRN PRN Reason: Pain Last Admin: 12/25/17 07:27 Dose: 1 tab Senna (Senokot Tab*) 1 tab PO BID PRN PRN Reason: CONSTIPATION Last Admin: 12/26/17 07:26 Dose: 1 tab Oxygen Devices in Use Now: None Appearance: alert, ill appearing Eyes: No Scleral Icterus Ears/Nose/Mouth/Throat: NL Teeth, Lips, Gums Neck: NL Appearance and Movements; NL JVP Respiratory: Symmetrical Chest Expansion and Respiratory Effort, - - decreased breath sounds left base Cardiovascular: NL Sounds; No Murmurs; No JVD Abdominal: NL Sounds; No Tenderness; No Distention Lymphatic: No Cervical Adenopathy Extremities: No Edema Skin: No Rash or Ulcers Neurological: Alert and Oriented x 3 Result Diagrams: 12/24/17 05:21 12/24/17 05:21 Additional Lab and Data: Lab Results 12/23/17 12/23/17 12/23/17 Range/Units 03:03 03:03 03:03 WBC 14.2 H (3.5-10.8) 10^3/ul RBC 4.72 (4.0-5.4) 10^6/ul Hgb 12.9 (12.0-16.0) g/dl Hct 38 (35-47) % MCV 81 (80-97) fL MCH 27 (27-31) pg MCHC 34 (31-36) g/dl RDW 14 (10.5-15) % Plt Count 236 (150-450) 10^3/ul MPV 8 (7.4-10.4) um3 Neut % (Auto) 87.2 H (38-83) % Lymph % (Auto) 4.2 L (25-47) % Waldo % (Auto) 7.4 (1-9) % Eos % (Auto) 1.0 (0-6) % Baso % (Auto) 0.2 (0-2) % Absolute Neuts (auto) 12.4 H (1.5-7.7) 10^3/ul Absolute Lymphs (auto) 0.6 L (1.0-4.8) 10^3/ul Absolute Monos (auto) 1.1 H (0-0.8) 10^3/ul Absolute Eos (auto) 0.1 (0-0.6) 10^3/ul Absolute Basos (auto) 0 (0-0.2) 10^3/ul Absolute Nucleated RBC 0 10^3/ul Nucleated RBC % 0 INR (Anticoag Therapy) 1.12 H (0.77-1.02) APTT 29.3 (26.0-36.3) seconds D-Dimer, Quantitative < 200 (Less Than 230) ng/mL Sodium 136 (133-145) mmol/L Potassium 3.8 (3.5-5.0) mmol/L Chloride 101 (101-111) mmol/L Carbon Dioxide 25 (22-32) mmol/L Anion Gap 10 (2-11) mmol/L BUN 22 (6-24) mg/dL Creatinine 0.75 (0.51-0.95) mg/dL Est GFR ( Amer) 102.4 (>60) Est GFR (Non-Af Amer) 79.6 (>60) BUN/Creatinine Ratio 29.3 H (8-20) Glucose 115 H (70-100) mg/dL Calcium 9.6 (8.6-10.3) mg/dL Total Bilirubin 1.20 H (0.2-1.0) mg/dL AST 19 (13-39) U/L ALT 15 (7-52) U/L Alkaline Phosphatase 71 (34-104) U/L Troponin I 0.01 (<0.04) ng/mL C-Reactive Protein 258.35 H (< 5.00) mg/L Total Protein 6.9 (6.4-8.9) g/dL Albumin 4.0 (3.2-5.2) g/dL Globulin 2.9 (2-4) g/dL Albumin/Globulin Ratio 1.4 (1-3) Lipase < 10 L (11.0-82.0) U/L Urine Color Urine Appearance Urine pH (5-9) Ur Specific [place] (1.010-1.030) Urine Protein (Negative) Urine Ketones (Negative) Urine Blood (Negative) Urine Nitrate (Negative) Urine Bilirubin (Negative) Urine Urobilinogen (Negative) Ur Leukocyte Esterase (Negative) Urine WBC (Auto) (Absent) Urine RBC (Auto) (Absent) Ur Squamous Epith Cells (Absent) Urine Bacteria (Absent) Urine Glucose (Negative) Urine Ascorbic Acid (Negative) 12/23/17 Range/Units 05:00 WBC (3.5-10.8) 10^3/ul RBC (4.0-5.4) 10^6/ul Hgb (12.0-16.0) g/dl Hct (35-47) % MCV (80-97) fL MCH (27-31) pg MCHC (31-36) g/dl RDW (10.5-15) % Plt Count (150-450) 10^3/ul MPV (7.4-10.4) um3 Neut % (Auto) (38-83) % Lymph % (Auto) (25-47) % Waldo % (Auto) (1-9) % Eos % (Auto) (0-6) % Baso % (Auto) (0-2) % Absolute Neuts (auto) (1.5-7.7) 10^3/ul Absolute Lymphs (auto) (1.0-4.8) 10^3/ul Absolute Monos (auto) (0-0.8) 10^3/ul Absolute Eos (auto) (0-0.6) 10^3/ul Absolute Basos (auto) (0-0.2) 10^3/ul Absolute Nucleated RBC 10^3/ul Nucleated RBC % INR (Anticoag Therapy) (0.77-1.02) APTT (26.0-36.3) seconds D-Dimer, Quantitative (Less Than 230) ng/mL Sodium (133-145) mmol/L Potassium (3.5-5.0) mmol/L Chloride (101-111) mmol/L Carbon Dioxide (22-32) mmol/L Anion Gap (2-11) mmol/L BUN (6-24) mg/dL Creatinine (0.51-0.95) mg/dL Est GFR ( Amer) (>60) Est GFR (Non-Af Amer) (>60) BUN/Creatinine Ratio (8-20) Glucose (70-100) mg/dL Calcium (8.6-10.3) mg/dL Total Bilirubin (0.2-1.0) mg/dL AST (13-39) U/L ALT (7-52) U/L Alkaline Phosphatase (34-104) U/L Troponin I (<0.04) ng/mL C-Reactive Protein (< 5.00) mg/L Total Protein (6.4-8.9) g/dL Albumin (3.2-5.2) g/dL Globulin (2-4) g/dL Albumin/Globulin Ratio (1-3) Lipase (11.0-82.0) U/L Urine Color Frannie Urine Appearance Cloudy Urine pH 5.0 (5-9) Ur Specific [place] 1.026 (1.010-1.030) Urine Protein 1+(30 mg/dl) H (Negative) Urine Ketones 1+ H (Negative) Urine Blood Negative (Negative) Urine Nitrate Negative (Negative) Urine Bilirubin Negative (Negative) Urine Urobilinogen Negative (Negative) Ur Leukocyte Esterase Negative (Negative) Urine WBC (Auto) 1+(6-10/hpf) H (Absent) Urine RBC (Auto) 3+(>10/hpf) H (Absent) Ur Squamous Epith Cells Present H (Absent) Urine Bacteria Absent (Absent) Urine Glucose Negative (Negative) Urine Ascorbic Acid * H (Negative) Assess/Plan/Problems-Billing Assessment: - Patient Problems (1) Pleural effusion Current Visit: Yes Status: Acute Code(s): J90 - PLEURAL EFFUSION, NOT ELSEWHERE CLASSIFIED SNOMED Code(s): 39031075 Comment: 800cc's withdrawn yesterday, with minimal improvement in her cxr or symptoms fluid growing MRSA changed ceftriaxone to clindamycin will discuss her case with surgery and pulmonology--bronch vs. chest tube? (2) Anxiety Current Visit: Yes Status: Acute Code(s): F41.9 - ANXIETY DISORDER, UNSPECIFIED SNOMED Code(s): 94221957 Comment: karl diop
[2017-12-26] MEDS: Ketorolac INJ* 30 MG/ML 1 ML VIAL IV PUSH PRN ×2 (16:03→23:37)
[2017-12-26] MEDS: ALPRAZolam TAB* 0.25 MG PO PRN (16:03)
--- NOTE | 2017-12-26 17:34 | RAD ---
INDICATION: Marked site for thoracentesis, left pleural effusion. COMPARISON: Correlation is made with a prior CT of the chest from every first 2018. TECHNIQUE: Multiple real-time images of the chest on the both sides were obtained. FINDINGS: There is a small right pleural effusion and a small complex left pleural effusion. IMPRESSION: SMALL BILATERAL PLEURAL EFFUSIONS SLIGHTLY LARGER AND COMPLEX ON THE LEFT SIDE.
--- NOTE | 2017-12-26 19:45 | RAD ---
INDICATION: MRSA effusion. COMPARISON: Comparison is made with prior chest x-ray studies from December 22, 2014 and December 26, 2017. TECHNIQUE: A CT scan of the chest was performed without intravenous contrast. Contiguous axial sections were obtained from the lung apices through the lung bases. Images were reconstructed in the coronal and sagittal planes. FINDINGS: There are relatively dense infiltrates present in the left lower lobe and inferior half of the left upper lobe with air bronchograms most consistent with pneumonia and the patient's clinical history. The right lung appears clear. There are small bilateral pleural effusions. Evaluation of the mediastinum and hilar structures are limited on this noncontrast study although there appears to be an enlarged lymph node in the aorticopulmonary window region measuring 1.3 cm in transverse dimension enlarged precarinal lymph node measuring 1.4 cm in transverse dimension. The left hilum is enlarged suspicious for hilar lymphadenopathy. The heart is within normal limits in size. No pericardial effusion is present. The thoracic aorta is normal in caliber. The patient is status post bilateral augmentation mammoplasty. No enlarged axillary lymph nodes are seen. No significant focal osseous abnormality is seen. IMPRESSION: 1. LEFT UPPER AND LOWER LOBE INFILTRATES MOST CONSISTENT WITH PNEUMONIA. 2. SMALL BILATERAL PLEURAL EFFUSIONS. 3. MEDIASTINAL AND PROBABLE LEFT HILAR LYMPHADENOPATHY.
--- NOTE | 2017-12-27 00:30 | OP ---
CC: ELIZA Dean * DATE OF OPERATION: 12/25/17 - ROOM #432 DATE OF : 1960. SURGEON: Patrick Richter MD. MOLASSES PREPARER: None. ANESTHESIA: Local. PREPROCEDURE DIAGNOSIS: Left pleural effusion. POSTPROCEDURE DIAGNOSIS: Left pleural effusion. OPERATIVE PROCEDURE: Left thoracentesis. Over 900 cc of straw colored fluid removed from left chest. Specimen sent. DRAINS: None. The patient tolerated the procedure well. INDICATION: I was contacted by the hospitalist service to evaluate Ms. Lugo, a 57- year-old female who presented with left flank pain to the hospital who was admitted with a concern of left pleural effusion and possible pneumonia. Recommendation was for a diagnostic thoracentesis on the left. Patient was complaining of shortness of breath and chest pain. When I examined her, she had decreased breath sounds on the left. We reviewed her CAT scan which showed moderate effusion at the bases of the lungs, even though this was an abdominal CT scan. A followup x-ray showed a moderate pleural effusion. I outlined details of the procedure to Ms. Lugo going over the risks, benefits and alternatives to thoracentesis in the standard fashion. Patient agreed and signed consent. DESCRIPTION OF PROCEDURE: After prepping the left back and draping this, a time - out was performed. Injection of lidocaine for a local block was made and needle inserted into the left chest. Approximately 900 cc of straw colored fluid was removed before the patient had some notable coughing. The needle was then removed and a dressing applied. The fluid was sent for specimen for both gram-stain, sensitivity and cell counts. The patient tolerated the procedure well. [id number]/[facility] #: [id number] MTDD
--- NOTE | 2017-12-27 00:39 | CONS ---
PULMONARY CONSULTATION REPORT: DATE OF CONSULTATION: 12/26/17 CONSULTATION REQUESTED BY: Caro Fermin DO. REASON FOR CONSULTATION: Evaluation of pleural effusion. HISTORY OF PRESENT ILLNESS: The patient is a 57-year-old female, former smoker who quit 3 weeks ago. The patient presents for evaluation of left-sided chest pain. 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 She was staying in hospital for a week along with her daughter. The patient has developed sore throat and cough a few days after she came home. Symptoms have been worsening since that time. She started noticing significant left-sided chest pain and difficulty to take deep breath. The patient also reported cough productive of yellow phlegm. The patient also reports fevers and chills. The patient's symptoms worsened and while she was at work and decided to come into the emergency room for further evaluation. The patient reports that she quit smoking 3 weeks ago. She has quit in the past multiple times and restarted smoking again. The patient denies loss of weight or appetite. The patient denies recent travel. The patient denies any dental issues. The patient denies rash, headache, neck stiffness. Further evaluation in the emergency room included abdominal and pelvis CT scan, which showed evidence of small left pleural effusion. The patient was found to have left pleural effusion and left basal pneumonia on the scan. Chest x-ray showed evidence of left pleural effusion, which was not seen on prior x-ray from . The patient had thoracentesis on 12/25/17 with removal of 850 mL of straw- colored fluid, cytology is negative for malignancy, evidence of inflammation was seen. The patient also was found to have MRSA positivity from sputum cultures and also from the pleural fluid. The patient was seen and examined at bedside. The patient reported slight improvement in shortness of breath. The patient reports significant anxiety. The patient is on room air with O2 saturations in mid 90s. She is slightly tachycardic, has been febrile. The patient felt significantly improved after pleural fluid drainage. Antibiotics were changed to clindamycin today. The patient underwent repeat chest x-ray post thoracentesis, which showed left pleural effusion moderate in size, decreased since prior x-ray. PAST MEDICAL HISTORY: Tobacco abuse, quit 3 weeks ago. MEDICATIONS: Naprosyn in the emergency room for pain. ALLERGIES: No known drug allergies. FAMILY HISTORY: History of blood clots. 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 No alcohol or drug abuse. REVIEW OF SYSTEMS: All 14 systems reviewed and as per HPI. PHYSICAL EXAMINATION: The patient in bed in no apparent distress. Vital Signs : Temperature 99.3, pulse 92 beats per minute, respiratory rate 20 per minute, O2 saturation 95% on room air, blood pressure 119/75. HEENT: Pupils equal and reactive to light. Mucous membranes moist. Lungs: Diminished air entry on the left base. Cardiovascular: S1, S2 present. Regular, tachycardic. Abdomen : Soft, bowel sounds present. Extremities: Normal range of motion. Skin: No rash or bruises. LABORATORY DATA: Hemoglobin 11.6, hematocrit 35, platelet count is 220,000, white count of 13.3 with a left shift. D-dimer within normal limits. Sodium 136, potassium 3.6, chloride 106, bicarbonate 23, BUN 18, creatinine 0.63. Procalcitonin less than 0.5. Pleural fluid analysis shows neutrophil predominant fluid with glucose 79, total protein 3, suggestive of exudative fluid, pH is pending. Pleural fluid cultures positive for MRSA. Gram stain positive for MRSA. Influenza A and B negative. IMPRESSION AND RECOMMENDATIONS: 57-year-old female, former smoker with left pleural effusion, status post drainage of 850 mL of fluid, exudative with protein criteria with persistent fluid. The patient appears to have MRSA pneumonia with pleural fluid also growing the same bacteria. Given the parapneumonic effusion and positive Gram stain, she would need chest tube for drainage of pleural fluid to prevent further complications. Continue with current antibiotics. Discussed with Dr. eFrmin and Dr. Richter. The patient to have CT scan of the chest performed today and will have chest tube placed by Dr. Richter. I do not see any indication for bronchoscopy at this time. Bedside ultrasound was performed to evaluate need for drainage of effusion, she was noted to have complex fluid with multiple loculations. Thank you for allowing me to participate in care of your patient. Will follow up with you. [id number]/[facility] #: [id number] MTDD
[2017-12-27] MEDS: Clindamycin 600 MG IVPREMIX(* 600 MG/50 ML SDV IV SCH ×3 (04:32→18:02)
[2017-12-27 05:50] LABS: ABS Basophils 0 10^3/ul (0-0.2); ABS Eosinophils 0.2 10^3/ul (0-0.6); ABS Lymphocytes 0.9 10^3/ul (1.0-4.8); ABS Monocytes 1.4 10^3/ul (0-0.8); ABS Neutrophils 6.4 10^3/ul (1.5-7.7); ABS Nucleated RBC 0 10^3/ul; Eosinophil % 2.7 % (0-6); Hematocrit 34 % (35-47); Hemoglobin 11.2 g/dl (12.0-16.0); Lymphocyte % 9.9 % (25-47); Mean Corpuscular HGB Conc 33 g/dl (31-36); Mean Corpuscular Hemoglobin 27 pg (27-31); Mean Corpuscular Volume 80 fL (80-97); Mean Platelet Volume 7 um3 (7.4-10.4); Nucleated Red Blood Cells % 0.1; Platelet Count 342 10^3/ul (150-450); Red Blood Count 4.19 10^6/ul (4.0-5.4); Red Cell Distribution Width 14 % (10.5-15); White Blood Count 8.9 10^3/ul (3.5-10.8)
[2017-12-27 06:04] LABS: EGFR Non-African American 118.9 (>60)
[2017-12-27] MEDS: Acetaminophen TAB* 325 MG PO PRN (10:09)
[2017-12-27] MEDS: Ketorolac INJ* 30 MG/ML 1 ML VIAL IV PUSH PRN ×2 (10:09→20:01)
[2017-12-27] MEDS: ALPRAZolam TAB* 0.25 MG PO PRN (13:54)
[2017-12-27] MEDS ORDERED: fentaNYL* 50 MCG/ML 2 ML VIAL (100 MCG VIAL) ONE (13:57)
--- NOTE | 2017-12-27 15:45 | PN ---
Progress Note - Progress Note Date of Service: 12/27/17 - Pulm f/u note Note: . Patient seen and examined at bedside. Patient reports slight improvement in chest discomfort and shortness of breath. Pain Medications are helping. She continues to spike fevers. Active Medications Generic Name Dose Route Start Last Admin Trade Name Freq PRN Reason Stop Dose Admin Acetaminophen 650 mg 12/23/17 06:06 12/27/17 10:09 Tylenol Tab* PO 650 mg Q4H PRN Administration FEVER/PAIN Al Hydrox/Mg Hydrox/Simethicone 30 ml 12/23/17 06:06 Maalox Plus* PO Q6H PRN INDIGESTION Albuterol 2.5 mg 12/23/17 06:06 Ventolin 2.5 Mg/3 Ml Neb.Nohelia* INH [id number] AWAKE PRN sob/wheezing Alprazolam 0.25 mg 12/24/17 18:08 12/27/17 13:54 Xanax Tab* PO 0.25 mg Q8H PRN Administration ANXIETY Docusate Sodium 100 mg 12/23/17 06:06 12/26/17 07:26 Colace Cap* PO 100 mg BID PRN Administration CONSTIPATION Clindamycin HCl/Dextrose 600 mg in 50 mls @ 100 mls/hr 12/27/17 12:00 12:01 Cleocin 600 Mg Ivpremix(*) Sdv IV 100 mls/hr Q6HR ROSARIO Administration Ketorolac Tromethamine 30 mg 12/23/17 12:00 12/27/17 10:09 Toradol Inj* IV PUSH 30 mg Q6H PRN Administration PAIN Morphine Sulfate 2 mg 12/23/17 06:06 Morphine Inj (Syringe)* IV Q4H PRN PAIN Ondansetron HCl 4 mg 12/23/17 06:06 Zofran Inj* IV Q4H PRN NAUSEA/VOMITING Oxycodone/Acetaminophen 1 tab 12/23/17 06:06 12/25/17 07:27 Percocet 5/325 Tab* PO 1 tab Q4H PRN Administration Pain Senna 1 tab 12/23/17 06:06 12/26/17 07:26 Senokot Tab* PO 1 tab BID PRN Administration CONSTIPATION Vital Signs Temp Pulse Resp BP Pulse Ox 100.1 F 88 14 123/83 97 12/27/17 08:11 12/27/17 08:11 12/27/17 13:54 12/27/17 08:11 12/27/17 08:11 O/E; Pt in NAD HEENT: PERRLA, No JVD Lungs: Decreased air entry on left base CVS; S1, S2+, regular Abd: SOft, BS+ Ext: NOrmal ROM Neuro: Slightly anxious, no focal defecits Laboratory Results - last 24 hr 12/25/17 12/27/17 12/27/17 13:38 05:28 05:28 WBC 8.9 RBC 4.19 Hgb 11.2 L Hct 34 L MCV 80 MCH 27 MCHC 33 RDW 14 Plt Count 342 MPV 7 L Neut % (Auto) 71.7 Lymph % (Auto) 9.9 L Rolette % (Auto) 15.2 H Eos % (Auto) 2.7 Baso % (Auto) 0.5 Absolute Neuts (auto) 6.4 Absolute Lymphs (auto) 0.9 L Absolute Monos (auto) 1.4 H Absolute Eos (auto) 0.2 Absolute Basos (auto) 0 Absolute Nucleated RBC 0 Nucleated RBC % 0.1 Sodium 136 Potassium 3.4 L Chloride 102 Carbon Dioxide 27 Anion Gap 7 BUN 11 Creatinine 0.53 Est GFR ( Amer) 152.9 Est GFR (Non-Af Amer) 118.9 BUN/Creatinine Ratio 20.8 H Glucose 133 H Calcium 8.4 L Fluid Source Pleural Fluid LDH 733 I/R; 57 y o f, with significant smoking history, quit 3 weeks ago a/w SOB, chest pain, fever found to have MRSA PNA and parapneumonic effusion Had thoracentesis 2 days ago with removal of 850cc. Repeat CT chest and U/S of lung images were personally reviewed. Pt with complex appearing pl fluid on left with loculations She will benefit from drainage of fluid to prevent further compications and fibrin formation She is to have U/S guided thoracentesis today with IR C/w abx Will obtain f/u CXR in 1-2 days D/w Dr Fermin and Dr Richter
--- NOTE | 2017-12-27 16:33 | RAD ---
Indication: Loculated left pleural effusion. Using usual aseptic technique and lidocaine as local anesthetic the left posterior chest was entered with a 5-Chinese catheter. A scant amount of serosanguineous fluid was aspirated approximately 30 mL. This is likely due to the multiloculated nature of this collection. IMPRESSION: Scant amount of fluid was aspirated from the left hemithorax.
--- NOTE | 2017-12-27 17:51 | PN ---
Subjective Date of Service: 12/27/17 Interval History: still feels "like crap." productive cough, chest discomfort, feverish. Family History: Unchanged from Admission Social History: Unchanged from Admission Past Medical History: Unchanged from Admission Objective Active Medications: Acetaminophen (Tylenol Tab*) 650 mg PO Q4H PRN PRN Reason: FEVER/PAIN Last Admin: 12/27/17 10:09 Dose: 650 mg Al Hydrox/Mg Hydrox/Simethicone (Maalox Plus*) 30 ml PO Q6H PRN PRN Reason: INDIGESTION Albuterol (Ventolin 2.5 Mg/3 Ml Neb.Nohelia*) 2.5 mg INH [id number] AWAKE PRN PRN Reason: sob/wheezing Alprazolam (Xanax Tab*) 0.25 mg PO Q8H PRN PRN Reason: ANXIETY Last Admin: 12/27/17 13:54 Dose: 0.25 mg Docusate Sodium (Colace Cap*) 100 mg PO BID PRN PRN Reason: CONSTIPATION Last Admin: 12/26/17 07:26 Dose: 100 mg Clindamycin HCl/Dextrose (Cleocin 600 Mg Ivpremix(*) Sdv) 600 mg in 50 mls @ 100 mls/hr IV Q6HR ROSARIO Last Admin: 12/27/17 12:01 Dose: 100 mls/hr Ketorolac Tromethamine (Toradol Inj*) 30 mg IV PUSH Q6H PRN PRN Reason: PAIN Last Admin: 12/27/17 10:09 Dose: 30 mg Morphine Sulfate (Morphine Inj (Syringe)*) 2 mg IV Q4H PRN PRN Reason: PAIN Ondansetron HCl (Zofran Inj*) 4 mg IV Q4H PRN PRN Reason: NAUSEA/VOMITING Oxycodone/Acetaminophen (Percocet 5/325 Tab*) 1 tab PO Q4H PRN PRN Reason: Pain Last Admin: 12/25/17 07:27 Dose: 1 tab Senna (Senokot Tab*) 1 tab PO BID PRN PRN Reason: CONSTIPATION Last Admin: 12/26/17 07:26 Dose: 1 tab Vital Signs - 8 hr 12/27/17 12/27/17 13:54 17:40 Respiratory 14 16 Rate Oxygen Devices in Use Now: None Appearance: nontoxic Eyes: No Scleral Icterus Ears/Nose/Mouth/Throat: NL Teeth, Lips, Gums Neck: NL Appearance and Movements; NL JVP Respiratory: Symmetrical Chest Expansion and Respiratory Effort, - - rhonchi senior care up left lung Cardiovascular: NL Sounds; No Murmurs; No JVD, RRR Abdominal: NL Sounds; No Tenderness; No Distention Lymphatic: No Cervical Adenopathy Extremities: No Edema Skin: No Rash or Ulcers Result Diagrams: 12/27/17 05:28 12/27/17 05:28 Additional Lab and Data: Lab Results 12/23/17 12/23/17 12/23/17 Range/Units 03:03 03:03 03:03 WBC 14.2 H (3.5-10.8) 10^3/ul RBC 4.72 (4.0-5.4) 10^6/ul Hgb 12.9 (12.0-16.0) g/dl Hct 38 (35-47) % MCV 81 (80-97) fL MCH 27 (27-31) pg MCHC 34 (31-36) g/dl RDW 14 (10.5-15) % Plt Count 236 (150-450) 10^3/ul MPV 8 (7.4-10.4) um3 Neut % (Auto) 87.2 H (38-83) % Lymph % (Auto) 4.2 L (25-47) % Rowan % (Auto) 7.4 (1-9) % Eos % (Auto) 1.0 (0-6) % Baso % (Auto) 0.2 (0-2) % Absolute Neuts (auto) 12.4 H (1.5-7.7) 10^3/ul Absolute Lymphs (auto) 0.6 L (1.0-4.8) 10^3/ul Absolute Monos (auto) 1.1 H (0-0.8) 10^3/ul Absolute Eos (auto) 0.1 (0-0.6) 10^3/ul Absolute Basos (auto) 0 (0-0.2) 10^3/ul Absolute Nucleated RBC 0 10^3/ul Nucleated RBC % 0 INR (Anticoag Therapy) 1.12 H (0.77-1.02) APTT 29.3 (26.0-36.3) seconds D-Dimer, Quantitative < 200 (Less Than 230) ng/mL Sodium 136 (133-145) mmol/L Potassium 3.8 (3.5-5.0) mmol/L Chloride 101 (101-111) mmol/L Carbon Dioxide 25 (22-32) mmol/L Anion Gap 10 (2-11) mmol/L BUN 22 (6-24) mg/dL Creatinine 0.75 (0.51-0.95) mg/dL Est GFR ( Amer) 102.4 (>60) Est GFR (Non-Af Amer) 79.6 (>60) BUN/Creatinine Ratio 29.3 H (8-20) Glucose 115 H (70-100) mg/dL Calcium 9.6 (8.6-10.3) mg/dL Total Bilirubin 1.20 H (0.2-1.0) mg/dL AST 19 (13-39) U/L ALT 15 (7-52) U/L Alkaline Phosphatase 71 (34-104) U/L Troponin I 0.01 (<0.04) ng/mL C-Reactive Protein 258.35 H (< 5.00) mg/L Total Protein 6.9 (6.4-8.9) g/dL Albumin 4.0 (3.2-5.2) g/dL Globulin 2.9 (2-4) g/dL Albumin/Globulin Ratio 1.4 (1-3) Lipase < 10 L (11.0-82.0) U/L Urine Color Urine Appearance Urine pH (5-9) Ur Specific [place] (1.010-1.030) Urine Protein (Negative) Urine Ketones (Negative) Urine Blood (Negative) Urine Nitrate (Negative) Urine Bilirubin (Negative) Urine Urobilinogen (Negative) Ur Leukocyte Esterase (Negative) Urine WBC (Auto) (Absent) Urine RBC (Auto) (Absent) Ur Squamous Epith Cells (Absent) Urine Bacteria (Absent) Urine Glucose (Negative) Urine Ascorbic Acid (Negative) 12/23/17 Range/Units 05:00 WBC (3.5-10.8) 10^3/ul RBC (4.0-5.4) 10^6/ul Hgb (12.0-16.0) g/dl Hct (35-47) % MCV (80-97) fL MCH (27-31) pg MCHC (31-36) g/dl RDW (10.5-15) % Plt Count (150-450) 10^3/ul MPV (7.4-10.4) um3 Neut % (Auto) (38-83) % Lymph % (Auto) (25-47) % Rowan % (Auto) (1-9) % Eos % (Auto) (0-6) % Baso % (Auto) (0-2) % Absolute Neuts (auto) (1.5-7.7) 10^3/ul Absolute Lymphs (auto) (1.0-4.8) 10^3/ul Absolute Monos (auto) (0-0.8) 10^3/ul Absolute Eos (auto) (0-0.6) 10^3/ul Absolute Basos (auto) (0-0.2) 10^3/ul Absolute Nucleated RBC 10^3/ul Nucleated RBC % INR (Anticoag Therapy) (0.77-1.02) APTT (26.0-36.3) seconds D-Dimer, Quantitative (Less Than 230) ng/mL Sodium (133-145) mmol/L Potassium (3.5-5.0) mmol/L Chloride (101-111) mmol/L Carbon Dioxide (22-32) mmol/L Anion Gap (2-11) mmol/L BUN (6-24) mg/dL Creatinine (0.51-0.95) mg/dL Est GFR ( Amer) (>60) Est GFR (Non-Af Amer) (>60) BUN/Creatinine Ratio (8-20) Glucose (70-100) mg/dL Calcium (8.6-10.3) mg/dL Total Bilirubin (0.2-1.0) mg/dL AST (13-39) U/L ALT (7-52) U/L Alkaline Phosphatase (34-104) U/L Troponin I (<0.04) ng/mL C-Reactive Protein (< 5.00) mg/L Total Protein (6.4-8.9) g/dL Albumin (3.2-5.2) g/dL Globulin (2-4) g/dL Albumin/Globulin Ratio (1-3) Lipase (11.0-82.0) U/L Urine Color Frannie Urine Appearance Cloudy Urine pH 5.0 (5-9) Ur Specific Moneta 1.026 (1.010-1.030) Urine Protein 1+(30 mg/dl) H (Negative) Urine Ketones 1+ H (Negative) Urine Blood Negative (Negative) Urine Nitrate Negative (Negative) Urine Bilirubin Negative (Negative) Urine Urobilinogen Negative (Negative) Ur Leukocyte Esterase Negative (Negative) Urine WBC (Auto) 1+(6-10/hpf) H (Absent) Urine RBC (Auto) 3+(>10/hpf) H (Absent) Ur Squamous Epith Cells Present H (Absent) Urine Bacteria Absent (Absent) Urine Glucose Negative (Negative) Urine Ascorbic Acid * H (Negative) Assess/Plan/Problems-Billing Assessment: - Patient Problems (1) Pleural effusion Current Visit: Yes Status: Acute Code(s): J90 - PLEURAL EFFUSION, NOT ELSEWHERE CLASSIFIED SNOMED Code(s): 35119400 Comment: parapneumonic fluid growing MRSA s/p thoracentesis; plan for IR repeat today changed ceftriaxone to clindamycin -- unfortunately she received CAP coverage until sputum grew MRSA (2) Anxiety Current Visit: Yes Status: Acute Code(s): F41.9 - ANXIETY DISORDER, UNSPECIFIED SNOMED Code(s): 23437456 Comment: karl diop
[2017-12-28] MEDS: Clindamycin 600 MG IVPREMIX(* 600 MG/50 ML SDV IV SCH ×3 (00:06→12:23)
[2017-12-28 06:57] LABS: ABS Basophils 0 10^3/ul (0-0.2); ABS Eosinophils 0.2 10^3/ul (0-0.6); ABS Lymphocytes 0.8 10^3/ul (1.0-4.8); ABS Monocytes 1.2 10^3/ul (0-0.8); ABS Neutrophils 6.1 10^3/ul (1.5-7.7); ABS Nucleated RBC 0 10^3/ul; Eosinophil % 2.8 % (0-6); Hematocrit 31 % (35-47); Hemoglobin 10.5 g/dl (12.0-16.0); Mean Corpuscular HGB Conc 34 g/dl (31-36); Mean Corpuscular Hemoglobin 27 pg (27-31); Mean Corpuscular Volume 80 fL (80-97); Mean Platelet Volume 7 um3 (7.4-10.4); Nucleated Red Blood Cells % 0; Platelet Count 357 10^3/ul (150-450); Red Cell Distribution Width 14 % (10.5-15); White Blood Count 8.3 10^3/ul (3.5-10.8)
[2017-12-28 07:11] LABS: EGFR Non-African American 116.4 (>60)
[2017-12-28] MEDS: Ketorolac INJ* 30 MG/ML 1 ML VIAL IV PUSH PRN (08:41)
[2017-12-28] MEDS: ALPRAZolam TAB* 0.25 MG PO PRN (08:41)
--- NOTE | 2017-12-28 14:34 | PN ---
Progress Note - Progress Note Date of Service: 12/28/17 - Pulm f/u note Note: Pt seen and examined at bedside. Pt reports improvement in sx. Cough, pleuritic pain and SOb are improved. No fever o/n. Active Medications Generic Name Dose Route Start Last Admin Trade Name Freq PRN Reason Stop Dose Admin Acetaminophen 650 mg 12/23/17 06:06 12/27/17 10:09 Tylenol Tab* PO 650 mg Q4H PRN Administration FEVER/PAIN Al Hydrox/Mg Hydrox/Simethicone 30 ml 12/23/17 06:06 Maalox Plus* PO Q6H PRN INDIGESTION Albuterol 2.5 mg 12/23/17 06:06 Ventolin 2.5 Mg/3 Ml Neb.Nohelia* INH [id number] AWAKE PRN sob/wheezing Alprazolam 0.25 mg 12/24/17 18:08 12/28/17 08:41 Xanax Tab* PO 0.25 mg Q8H PRN Administration ANXIETY Docusate Sodium 100 mg 12/23/17 06:06 12/26/17 07:26 Colace Cap* PO 100 mg BID PRN Administration CONSTIPATION Clindamycin HCl/Dextrose 600 mg in 50 mls @ 100 mls/hr 12/27/17 12:00 12:23 Cleocin 600 Mg Ivpremix(*) Sdv IV 100 mls/hr Q6HR ROSARIO Administration Morphine Sulfate 2 mg 12/23/17 06:06 Morphine Inj (Syringe)* IV Q4H PRN PAIN Ondansetron HCl 4 mg 12/23/17 06:06 Zofran Inj* IV Q4H PRN NAUSEA/VOMITING Oxycodone/Acetaminophen 1 tab 12/23/17 06:06 12/25/17 07:27 Percocet 5/325 Tab* PO 1 tab Q4H PRN Administration Pain Senna 1 tab 12/23/17 06:06 12/26/17 07:26 Senokot Tab* PO 1 tab BID PRN Administration CONSTIPATION Vital Signs Temp Pulse Resp BP Pulse Ox 99.2 F 89 17 135/71 94 12/28/17 07:56 12/28/17 07:56 12/28/17 08:41 12/28/17 07:56 02/03/18 07:56 O/E; Pt in NAD HEENT: PERRLA, No JVD, mucus membranes moist Lungs: Decreased air entry on left base, no accessory muscle use CVS; S1, S2+, regular Abd: SOft, BS+ Ext: NOrmal ROM Neuro: Less anxious, no focal defecits Laboratory Results - last 24 hr 12/28/17 12/28/17 06:20 06:20 WBC 8.3 RBC 3.90 L Hgb 10.5 L Hct 31 L MCV 80 MCH 27 MCHC 34 RDW 14 Plt Count 357 MPV 7 L Neut % (Auto) 73.9 Lymph % (Auto) 9.0 L Hale % (Auto) 13.9 H Eos % (Auto) 2.8 Baso % (Auto) 0.4 Absolute Neuts (auto) 6.1 Absolute Lymphs (auto) 0.8 L Absolute Monos (auto) 1.2 H Absolute Eos (auto) 0.2 Absolute Basos (auto) 0 Absolute Nucleated RBC 0 Nucleated RBC % 0 Sodium 134 Potassium 3.4 L Chloride 100 L Carbon Dioxide 26 Anion Gap 8 BUN 14 Creatinine 0.54 Est GFR ( Amer) 149.7 Est GFR (Non-Af Amer) 116.4 BUN/Creatinine Ratio 25.9 H Glucose 99 Calcium 8.1 L I/R; 57 y o f, with significant smoking history, quit 3 weeks ago a/w SOB, chest pain, fever found to have MRSA PNA and parapneumonic effusion Had thoracentesis on admission with removal of 850cc. Repeat CT chest and U/S of lung showed small loculated effusion on left and underwent rpt thoracentesis with IR yesterday with removal of 30 ml from dominant pocket C/w abx, agree with switching to Vanco Will obtain f/u CXR in 1-2 days, if has residual fluid or increase in fluid, will consult thoracic sx Pt willing to quit smoking OOB to chair, ambulate as tolerated D/w Dr Patel
[2017-12-28] MEDS ORDERED: Vancomycin(*) 1,250 MG in NS 0.9% 250 ML* 250 ML IVPB ONE (16:00)
[2017-12-28] MEDS: Acetaminophen TAB* 325 MG PO PRN (17:07)
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
[2017-12-28] MEDS ORDERED: Ibuprofen TAB* 400 MG PO PRN (18:02)
[2017-12-28] MEDS: Vancomycin(*) 1,000 MG in NS 0.9% 250 ML* 250 ML IVPB SCH (23:53)
[2017-12-29] MEDS: Docusate CAP* 100 MG PO PRN (08:14)
[2017-12-29] MEDS: Vancomycin(*) 1,000 MG in NS 0.9% 250 ML* 250 ML IVPB SCH ×3 (08:14→23:55)
[2017-12-29] MEDS: Senna TAB PO PRN (08:14)
[2017-12-29] MEDS: ALPRAZolam TAB* 0.25 MG PO PRN (11:47)
[2017-12-29] MEDS ORDERED: diPHENhydraMINE PO* 25 MG PO PRN (12:53)
--- NOTE | 2017-12-29 13:14 | PN ---
Subjective Date of Service: 12/29/17 Interval History: Tmax 101.0 1700 yesterday. hemodynamically stable. Clinda was changed to vanc. developed some pruritic erythematous papules, scarce on upper back and buttocks after 2nd dose of vancomycin last night. Family History: Unchanged from Admission Social History: Unchanged from Admission Past Medical History: Unchanged from Admission Objective Active Medications: Acetaminophen (Tylenol Tab*) 650 mg PO Q4H PRN PRN Reason: FEVER/PAIN Last Admin: 12/28/17 17:07 Dose: 650 mg Al Hydrox/Mg Hydrox/Simethicone (Maalox Plus*) 30 ml PO Q6H PRN PRN Reason: INDIGESTION Albuterol (Ventolin 2.5 Mg/3 Ml Neb.Nohelia*) 2.5 mg INH [id number] AWAKE PRN PRN Reason: sob/wheezing Alprazolam (Xanax Tab*) 0.25 mg PO Q8H PRN PRN Reason: ANXIETY Last Admin: 12/29/17 11:47 Dose: 0.25 mg Diphenhydramine HCl (Benadryl Po*) 25 mg PO Q6H PRN PRN Reason: PRURITIS Docusate Sodium (Colace Cap*) 100 mg PO BID PRN PRN Reason: CONSTIPATION Last Admin: 12/29/17 08:14 Dose: 100 mg Vancomycin HCl 1,000 mg/ (Sodium Chloride) 250 mls @ 166.667 mls/hr IVPB Q8H ROSARIO Last Admin: 12/29/17 08:14 Dose: 166.667 mls/hr Ibuprofen (Motrin Tab*) 400 mg PO Q6H PRN PRN Reason: PAIN Last Admin: 12/29/17 08:14 Dose: 400 mg Morphine Sulfate (Morphine Inj (Syringe)*) 2 mg IV Q4H PRN PRN Reason: PAIN Ondansetron HCl (Zofran Inj*) 4 mg IV Q4H PRN PRN Reason: NAUSEA/VOMITING Oxycodone/Acetaminophen (Percocet 5/325 Tab*) 1 tab PO Q4H PRN PRN Reason: Pain Last Admin: 12/25/17 07:27 Dose: 1 tab Pharmacy Profile Note (Vancomycin Trough Check) 1 note FOLLOW UP 729 ONE Stop: 12/30/17 07:31 Senna (Senokot Tab*) 1 tab PO BID PRN PRN Reason: CONSTIPATION Last Admin: 12/29/17 08:14 Dose: 1 tab Vital Signs - 8 hr 12/29/17 12/29/17 12/29/17 08:00 10:07 11:47 Temperature 99.5 F Pulse Rate 85 Respiratory 16 16 18 Rate Blood Pressure 114/64 (mmHg) O2 Sat by Pulse 94 Oximetry Oxygen Devices in Use Now: None Appearance: NAD Eyes: No Scleral Icterus, PERRLA Ears/Nose/Mouth/Throat: NL Teeth, Lips, Gums, Mucous Membranes Moist Respiratory: Symmetrical Chest Expansion and Respiratory Effort, - - slightly decreased left base.no wheezing or rhonchi. Cardiovascular: NL Sounds; No Murmurs; No JVD, RRR Abdominal: NL Sounds; No Tenderness; No Distention Extremities: No Edema, No Clubbing, Cyanosis Skin: - - pruritic scarce erythematous papules on back and upper buttocks Neurological: Alert and Oriented x 3, NL Sensation, NL Muscle Strength and Tone Result Diagrams: 12/28/17 06:20 12/28/17 06:20 Additional Lab and Data: Microbiology and Other Data: Microbiology 12/25/17 13:38 Pleural Fluid Sterile Body Fluid Culture - Final MRSA 12/25/17 13:38 Pleural Fluid Sterile Body Fluid Culture - Final MRSA 12/25/17 13:38 Body Fluid - Pleura Gram Stain - Final 12/25/17 13:38 Body Fluid - Pleura Skin and Soft Tissue MRSA/MSSA (PCR - Final Mrsa Positive S.aureus Positive 12/23/17 23:35 Sputum Expectorated Gram Stain - Final 12/23/17 23:35 Sputum Expectorated Sputum Culture - Final MRSA Normal Denise 12/23/17 06:32 Nasal Influenza Types A,B Antigen (SRI) - Final Specimen received for Influenza A/B Molecular testing Assess/Plan/Problems-Billing Assessment: 57 yo female PMH stressors at home and 6 days hospital exposure p/w chest pain, found to have loculated MRSA paraneumonic effusion. Sepsis (resolved). s/p thoracentesis x2 .Transitioning to vancomycin 2/3 from clinda. PICC line ordered. - Patient Problems (1) Loculated pleural effusion Current Visit: Yes Status: Acute Code(s): J90 - PLEURAL EFFUSION, NOT ELSEWHERE CLASSIFIED SNOMED Code(s): 766787137 Comment: parapneumonic, exudative, MRSA+ s/p thoracentesis x 2; continue vancomycin (started 12/28/17, initially on clinda). Likely will need 4 weeks. PICC line ordered. ID consult placed. Appreciated pulmonology recs. Repeat 2view CXR 12/29 afternoon (today) ibuprofen and tylenol prn (2) MRSA pneumonia Current Visit: Yes Status: Acute Code(s): J15.212 - PNEUMONIA DUE TO METHICILLIN RESISTANT STAPHYLOCOCCUS AUREUS SNOMED Code(s): 019373640842289 Comment: continue vancomycin and plan as above. Slow rate of infusion given slight rash. benadryl prn. Causing Sepsis and SIRS (SBP 90s, RR 24) fevers, leuokcytosis. (3) Anxiety Current Visit: Yes Status: Acute Code(s): F41.9 - ANXIETY DISORDER, UNSPECIFIED SNOMED Code(s): 87186746 Comment: xanax prn Status and Disposition: medicine inpatient. needs PICC line. may need additional drainage of pleural effusion. Attending: Jarred Patel
--- NOTE | 2017-12-29 16:42 | RAD ---
INDICATION: Loculated left-sided pleural effusion with a history of thoracentesis x2 COMPARISON: Most recent comparison chest x-rays dated December 26, 2017. There is also a CT of the chest dated December 26, 2017. TECHNIQUE: PA and lateral views of the chest were obtained. FINDINGS: Similar appearance to the most recent chest x-ray, there is density obscuring most of the left lower lung including the left hemidiaphragm and costophrenic angle. The right lung is adequately aerated. Visualized bones are normal for the patient's age. There is no radiographic evidence of free air beneath the diaphragm IMPRESSION: PERSISTENT PNEUMONIA AND SMALL LEFT LUNG BASE PLEURAL EFFUSION OBSCURING THE LEFT LOWER LUNG SIMILAR IN APPEARANCE TO THE DECEMBER 26, 2017 CHEST X-RAY.
[2017-12-30] MEDS: Acetaminophen TAB* 325 MG PO PRN ×2 (03:50→17:41)
[2017-12-30] MEDS ORDERED: Vancomycin Trough Check NOTE FOLLOW UP ONE (07:30)
[2017-12-30 07:55] LABS: EGFR Non-African American 109.3 (>60)
[2017-12-30 08:07] LABS: Vancomycin Trough 14.8 mcg/mL
[2017-12-30] MEDS: Vancomycin(*) 1,000 MG in NS 0.9% 250 ML* 250 ML IVPB SCH ×4 (09:12→17:43)
--- NOTE | 2017-12-30 12:28 | CONS ---
CONSULTATION REPORT: DATE OF CONSULT: 12/30/17. REQUESTING PROVIDER: Dr. Patel. CONSULTING SERVICE: Infectious Disease. REASON FOR CONSULTATION: Pneumonia, parapneumonic effusions. IMPRESSION: 1. Left-sided pneumonia due to MRSA complicated by parapneumonic effusions which is complex and has required drainage and the pleural fluid has grown MRSA. I suspect she had influenza a week or so before this all started when she had myalgia and upper respiratory symptoms. 2. Tobacco abuse. RECOMMENDATION: Continue vancomycin, goal trough 15 to 20. She is about 5 days into antibiotics. Plan on 4 weeks total of antibiotics. I think the safest way would be through the IV for that course. Check an HIV antibody. HISTORY OF PRESENT ILLNESS: This is a 57-year-old woman with a history of tobacco abuse admitted with left-sided chest pain. About a week before that started, she had severe body aches, runny nose, sore throat, fatigue that developed while she was taking care of her daughter while the daughter was in [facility]. About a week later, she developed cough, left-sided chest pain, the pain became very severe. She was seen [facility], had a chest x-ray and was unremarkable. She came back when it was much worse and at that time there was a left-sided effusion and infiltrate. She had thoracentesis on the 1st for 900 cc of straw-colored fluid that has grown MRSA. Her sputum has grown MRSA. She had an IR attempted drainage on the 2nd where they got 30 cc of fluid. The chest x-ray done yesterday shows small left pleural effusion. She states that her pain is much better. Her fevers are gone. She is still coughing up some greenish sputum. There is no hemoptysis. She has not had an infection like this in the past. PAST MEDICAL HISTORY: Tobacco abuse. ALLERGIES: No known drug allergies. MEDICATIONS: 1. Tylenol. 2. Albuterol. 3. Xanax as needed. 4. Docusate. 5. Ibuprofen. 6. Senna. 7. Vancomycin 1 g every 8 hours. SOCIAL HISTORY: Lives in [place] by herself. She is a smoker. She has no travel. FAMILY HISTORY: No recurrent infections, no tuberculosis. REVIEW OF SYSTEMS: A 14-point review of systems was negative except as noted above in the history of present illness. PHYSICAL EXAMINATION: Vital Signs: Temperature is 37, heart rate 80, respirations 16, blood pressure 100/68, oxygen saturation 97% on room air. General: She is awake, not in distress. Neurologic: She is oriented x3. Follows all commands. HEENT: There is no conjunctival hemorrhage. Oropharynx without lesions. Neck: Supple. Lymph Nodes: There is no inguinal, axillary, or epitrochlear lymphadenopathy. Heart: Regular rate and rhythm without murmurs, rubs or gallops. Lungs: Decreased breath sounds at the left base without wheezes or rales. Abdomen: Soft, nontender, nondistended. There are bowel sounds present. Skin: There is no rash or splinter hemorrhages. Musculoskeletal: No spine tenderness to palpation or joint synovitis. LABORATORY DATA: White blood cell count 8, hemoglobin 10, platelets 357. Creatinine 0.5. Please see impression and recommendations outlined above, which I have discussed with Dr. Patel. Thank you for asking to me to see Christine Parish in consultation. [id number]/[facility] #: [id number] [place]
[2017-12-30] MEDS: ALPRAZolam TAB* 0.25 MG PO PRN (15:10)
[2017-12-30] MEDS ORDERED: Vancomycin per Pharmacy* NOTE FOLLOW UP PRN (15:53)
--- NOTE | 2017-12-30 17:48 | PN ---
Subjective Date of Service: 12/30/17 Interval History: Pain controlled. very anxious before PICC line. finally placed. ID saw. rash much better. Family History: Unchanged from Admission Social History: Unchanged from Admission Past Medical History: Unchanged from Admission Objective Active Medications: Acetaminophen (Tylenol Tab*) 650 mg PO Q4H PRN PRN Reason: FEVER/PAIN Last Admin: 12/30/17 17:41 Dose: 650 mg Al Hydrox/Mg Hydrox/Simethicone (Maalox Plus*) 30 ml PO Q6H PRN PRN Reason: INDIGESTION Albuterol (Ventolin 2.5 Mg/3 Ml Neb.Nohelia*) 2.5 mg INH [id number] AWAKE PRN PRN Reason: sob/wheezing Alprazolam (Xanax Tab*) 0.25 mg PO Q8H PRN PRN Reason: ANXIETY Last Admin: 12/30/17 15:10 Dose: 0.25 mg Diphenhydramine HCl (Benadryl Po*) 25 mg PO Q6H PRN PRN Reason: PRURITIS Last Admin: 12/29/17 16:52 Dose: 25 mg Docusate Sodium (Colace Cap*) 100 mg PO BID PRN PRN Reason: CONSTIPATION Last Admin: 12/29/17 08:14 Dose: 100 mg Heparin Sodium (Porcine) (Heparin Flush Picc/Ml/Cvc(*)) 1 - 3 ml FLUSH 0600, 1800 ROSARIO PRN Reason: Protocol Vancomycin HCl 1,000 mg/ (Sodium Chloride) 250 mls @ 83.333 mls/hr IVPB Q8H ROSARIO Last Admin: 12/30/17 17:43 Dose: 83.333 mls/hr Ibuprofen (Motrin Tab*) 400 mg PO Q6H PRN PRN Reason: PAIN Last Admin: 12/29/17 08:14 Dose: 400 mg Ondansetron HCl (Zofran Inj*) 4 mg IV Q4H PRN PRN Reason: NAUSEA/VOMITING Pharmacy Consult (Vancomycin Per Pharmacy*) 1 note FOLLOW UP . PRN PRN Reason: PER PROTOCOL Pharmacy Profile Note (Vancomycin Trough Check) 1 note FOLLOW UP 0900 ONE Stop: 01/01/18 09:01 Senna (Senokot Tab*) 1 tab PO BID PRN PRN Reason: CONSTIPATION Last Admin: 12/29/17 08:14 Dose: 1 tab Vital Signs - 8 hr 12/30/17 12/30/17 15:10 17:18 Respiratory 16 16 Rate Oxygen Devices in Use Now: None Appearance: NAD Eyes: No Scleral Icterus, PERRLA Ears/Nose/Mouth/Throat: NL Teeth, Lips, Gums, Mucous Membranes Moist Respiratory: Symmetrical Chest Expansion and Respiratory Effort, - - reduced left lung base. Cardiovascular: NL Sounds; No Murmurs; No JVD Abdominal: NL Sounds; No Tenderness; No Distention, No Hepatosplenomegaly Extremities: No Edema, No Clubbing, Cyanosis Skin: No Rash or Ulcers, No Nodules or Sclerosis Neurological: Alert and Oriented x 3, NL Sensation, NL Muscle Strength and Tone Nutrition: Taking PO's Result Diagrams: 12/28/17 06:20 12/30/17 07:15 Additional Lab and Data: Laboratory Results - last 24 hr 12/30/17 12/30/17 07:15 07:15 BUN 12 Creatinine 0.57 Est GFR ( Amer) 140.6 Est GFR (Non-Af Amer) 109.3 Vancomycin Trough 14.8 HIV 1&2 Antibody Nonreactive Microbiology and Other Data: Microbiology 12/25/17 13:38 Pleural Fluid Sterile Body Fluid Culture - Final MRSA 12/25/17 13:38 Pleural Fluid Sterile Body Fluid Culture - Final MRSA 12/25/17 13:38 Body Fluid - Pleura Gram Stain - Final 12/25/17 13:38 Body Fluid - Pleura Skin and Soft Tissue MRSA/MSSA (PCR - Final Mrsa Positive S.aureus Positive 12/23/17 23:35 Sputum Expectorated Gram Stain - Final 12/23/17 23:35 Sputum Expectorated Sputum Culture - Final MRSA Normal Denise 12/23/17 06:32 Nasal Influenza Types A,B Antigen (SIR) - Final Specimen received for Influenza A/B Molecular testing Assess/Plan/Problems-Billing Assessment: 57 yo female PMH stressors at home and 6 days hospital exposure p/w chest pain, found to have loculated MRSA paraneumonic effusion. Sepsis (resolved). s/p thoracentesis x2 .Transitioning to vancomycin 2/3 from clinda. PICC line placed. planned 4 weeks total. - Patient Problems (1) Loculated pleural effusion Current Visit: Yes Status: Acute Code(s): J90 - PLEURAL EFFUSION, NOT ELSEWHERE CLASSIFIED SNOMED Code(s): 997615188 Comment: parapneumonic, exudative, MRSA+ s/p thoracentesis x 2; continue vancomycin (started 12/28/17, initially on clinda). Likely will need 4 weeks. PICC line ordered. appreciate ID recs Appreciated pulmonology recs. Repeat 2view CXR 12/29 with small effusion and some infilitrates still. ibuprofen and tylenol prn (2) MRSA pneumonia Current Visit: Yes Status: Acute Code(s): J15.212 - PNEUMONIA DUE TO METHICILLIN RESISTANT STAPHYLOCOCCUS AUREUS SNOMED Code(s): 891865650764728 Comment: continue vancomycin and plan as above. Slow rate of infusion given slight rash. benadryl prn. Causing Sepsis and SIRS (SBP 90s, RR 24) fevers, leuokcytosis. (3) Anxiety Current Visit: Yes Status: Acute Code(s): F41.9 - ANXIETY DISORDER, UNSPECIFIED SNOMED Code(s): 30960980 Comment: xanax prn Status and Disposition: medicine inpatient. s/p PICC line. 4 weeks IV vanc needed. Attending: Jarred Patel
[2017-12-31] MEDS: Vancomycin(*) 1,000 MG in NS 0.9% 250 ML* 250 ML IVPB SCH ×3 (00:55→16:45)
[2017-12-31] MEDS: Acetaminophen TAB* 325 MG PO PRN (08:37)
--- NOTE | 2017-12-31 13:19 | PN ---
Progress Note - Progress Note Date of Service: 12/31/17 SOAP: Subjective: CC: parapneumonic effusion HPI: 57 year old woman with MRSA pneumonia, complicated parapneumonic effusion; chest pain fever and cough improved. No fever, rash, or diarrhea. Objective: Vital Signs Temp 37.2 C 12/31/17 07:55 Pulse 92 12/31/17 07:55 Resp 18 12/31/17 12:15 BP 118/69 12/31/17 07:55 Pulse Ox 95 12/31/17 07:55 Intake & Output 12/30/17 12/31/17 12/31/17 18:59 06:59 18:59 Intake Total 1296 940 340 Balance 1296 940 340 Intake: IV Fluids 236 490 Vancomycin 236 490 Oral 1060 450 340 Other: Estimated Void Large # Voids 1 Gen:awake, no distress HEENT:PERRL, MMM Heart:RRR no murmur Lungs: decr BS L base Abd:+BS NTND soft Skin: no rash MSK: no spine tenderness Laboratory Results - last 24 hr 12/30/17 12/31/17 07:15 08:25 Vancomycin Trough 13.9 HIV 1&2 Antibody Nonreactive Assessment: 1. MRSA pneumonia and complicated parapneumonic effusion; s/p thoracentesis 2. tobacco abuse Plan: 1. vancomycin goal tr 15-20 day 06/21; weekly cbc, cmp, crp, vanco trough Discussed with Dr Patel 35 minutes floor time >50% face to face discussing abx plans and monitoring
[2017-12-31 15:18] VITALS: BP 103/67
[2017-12-31] MEDS ORDERED: ALPRAZolam TAB* 0.25 MG PO PRN (15:33)
--- NOTE | 2017-12-31 18:36 | PN ---
Progress Note - Progress Note Date of Service: 12/31/17 - Pulm f/u note Note: Pt seen and examined at bedside. Pt reports improvement in cough, chest pain and SOB. Active Medications Generic Name Dose Route Start Last Admin Trade Name Freq PRN Reason Stop Dose Admin Acetaminophen 650 mg 12/23/17 06:06 12/31/17 08:37 Tylenol Tab* PO 650 mg Q4H PRN Administration FEVER/PAIN Al Hydrox/Mg Hydrox/Simethicone 30 ml 12/23/17 06:06 Maalox Plus* PO Q6H PRN INDIGESTION Albuterol 2.5 mg 12/23/17 06:06 Ventolin 2.5 Mg/3 Ml Neb.Nohelia* INH [id number] AWAKE PRN sob/wheezing Alprazolam 0.25 mg 12/31/17 15:33 Xanax Tab* PO Q8H PRN AGITATION/ANXIETY Diphenhydramine HCl 25 mg 12/29/17 12:53 12/29/17 16:52 Benadryl Po* PO 25 mg Q6H PRN Administration PRURITIS Docusate Sodium 100 mg 12/23/17 06:06 12/29/17 08:14 Colace Cap* PO 100 mg BID PRN Administration CONSTIPATION Heparin Sodium (Porcine) 1 - 3 ml 12/30/17 18:00 12/31/17 17:22 Heparin Flush Picc/Ml/Cvc(*) FLUSH Not Given 0600,1800 [facility] Protocol Vancomycin HCl 1,000 mg/ 250 mls @ 83.333 mls/hr 12/30/17 09:00 12/31/17 16: 45 Sodium Chloride IVPB 83.333 mls/hr Q8H ROSARIO Administration Ibuprofen 400 mg 12/28/17 18:02 12/29/17 08:14 Motrin Tab* PO 400 mg Q6H PRN Administration PAIN Ondansetron HCl 4 mg 12/23/17 06:06 Zofran Inj* IV Q4H PRN NAUSEA/VOMITING Pharmacy Consult 1 note 12/30/17 15:53 Vancomycin Per Pharmacy* FOLLOW UP . PRN PER PROTOCOL Pharmacy Profile Note 1 note 01/01/18 09:00 Vancomycin Trough Check FOLLOW UP 01/01/18 09:01 0900 ONE Senna 1 tab 12/23/17 06:06 12/29/17 08:14 Senokot Tab* PO 1 tab BID PRN Administration CONSTIPATION Vital Signs Temp Pulse Resp BP Pulse Ox 97.7 F 88 16 103/67 96 12/31/17 15:09 12/31/17 15:09 12/31/17 15:09 12/31/17 15:09 12/31/17 15:09 O/E: Pt in NAD HEENT: PERRLA, No JVD Lungs: Deccreased air entry at left base CVS: S1, S2+ Abd: Soft, BS+ Ext: Normal ROM Skin: No bruise or excoriation, rash improved Neuro: No focal defecits Laboratory Results - last 24 hr 12/31/17 08:25 Vancomycin Trough 13.9 57 y o f with MRSA PNA, parapneumonc effusion s/p thoracentesis with removal of 850cc, s/p CT chest and U/S with evidence of comple pl fluid on left s/p IR guided drainage, 30cc fluid removed On IV vancomycin, improving clinically Discussed with Dr Garsia, no need for VATS c/w abx to complete 4 week course Pt had PICC line placed yesterday For d/c home today Will f/u in 2 weeks in clinic with rpt CXR Smoking cessation reenforced
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
[2018-01-01] MEDS ORDERED: Vancomycin Trough Check NOTE FOLLOW UP ONE (09:00)
== END 2017-12-31 20:30 | disposition home or self-care (01) | DRG 143 ==
LOC: ED 01:57 → MEDTELE 06:06 → OBSVTOIN 12-25 15:33
PROVIDERS: ADMIT Pediatrics; ATTEND Internal Medicine
PROC: 0W9B3ZZ Drainage of Left Pleural Cavity, Percutaneous Approach (ICD-10-PCS; principal; 2017-12-25)
PROC: 0W9B3ZZ Drainage of Left Pleural Cavity, Percutaneous Approach (ICD-10-PCS; 2017-12-27)
PROC: 02HV33Z Insertion of Infusion Device into Superior Vena Cava, Percutaneous Approach (ICD-10-PCS; 2017-12-30)
DX: J90 Pleural effusion, not elsewhere classified (principal); J15.212 Pneumonia due to Methicillin resistant Staphylococcus aureus; F17.210 Nicotine dependence, cigarettes, uncomplicated; F41.9 Anxiety disorder, unspecified
CPT/HCPCS: 32555; 36415; 71045; 71046; 71250; 74176; 76604; 80048; 80053; 80202; 81003; 81015; 82565; 82945; 83615; 83690; 83880; 83986; 84145; 84155; 84157; 84484; 84520; 85025; 85379; 85610; 85730; 86140; 86703; 87040; 87070; 87077; 87186; 87205; 87640; 87641; 88112; 89051; 93005; 99284; 99406; A9270-GY; C1751; G0378; J0456; J0696; J1885; J2270; J2405; J3010; J3370

== ENCOUNTER 2018-01-17 22:37 | Emergency (ER) | payer OTHER ==
[2018-01-17] MEDS ORDERED: predniSONE TAB* 20 MG PO ONE (23:17)
[2018-01-17 23:35] VITALS: BP 103/71
--- NOTE | 2018-01-18 00:24 | ED ---
Jaskaran Iqbal Sixian, scribed for Hiram Rodriguez on 01/17/18 at 2319 . Allergic Reaction/Systemic - HPI Summary HPI Summary: This patient is a 57 year old F presenting to ED with a chief complaint of a rash on her extremities since 2100 today. The patient rates the pain 0/10 in severity. Symptoms aggravated and alleviated by nothing. Patient reports minor itching, discoloration on her legs. Patient denies SOB. Pt has been on IV vanco for a month and developed a rash over her extremities. Pt took 2 benadryl per her nurse. Pt has developed staph pneumonia for which she is taking the vanco. - History of Current Complaint Chief Complaint: EDAllergicReaction Time Seen by Provider: 01/17/18 23:06 Hx Obtained From: Patient Onset/Duration: Gradual Onset, Started hours ago, Still Present Timing: Constant, Lasting Hours Pain Intensity: 0 Pain Scale Used: 0-10 Numeric Aggravating Factor(s): Nothing Alleviating Factor(s): Nothing Associated Signs And Symptoms: Positive: Other: - Patient reports minor itching , discoloration on her legs. Patient denies SOB. - Allergies/Home Medications Allergies/Adverse Reactions: Allergies Allergy/AdvReac Type Severity Reaction Status Date / Time No Known Allergies Allergy Verified 03/11/14 09:00 PMH/Surg Hx/FS Hx/Imm Hx Endocrine/Hematology History: Denies: Hx Diabetes Cardiovascular History: Denies: Hx Hypertension Sensory History: Reports: Hx Contacts or Glasses Denies: Hx Deafness, Hx Hearing Aid Opthamlomology History: Reports: Hx Contacts or Glasses - Cancer History Cancer Type, Location and Year: Per pt-- ovarian Hx Chemotherapy: No Hx Radiation Therapy: No - Surgical History Surgery Procedure, Year, and Place: bilateral meniscus and ACL repair Infectious Disease History: No Infectious Disease History: Denies: Traveled Outside the [place] in Last 30 Days - Family History Known Family History: Negative: Hypertension, Diabetes - Social History Alcohol Use: Rare Substance Use Type: Reports: None Hx Tobacco Use: Yes Smoking Status (MU): Light Every Day Tobacco Smoker Type: Cigarettes Amount Used/How Often: 1/2 PPD Review of Systems Negative: Fever Negative: Shortness Of Breath Positive: Rash, Other - Patient reports minor itching, discoloration on her legs. All Other Systems Reviewed And Are Negative: Yes Physical Exam - Summary Physical Exam Summary: Appearance: Well appearing, no pain distress Skin: warm, dry, reflects adequate perfusion, diffuse Rash over skin, PICC line in left arm Head/face: normal Eyes: EOMI, ELLIE ENT: normal Neck: supple, non-tender Respiratory: CTA, breath sounds present Cardiovascular: RRR, pulses symmetrical Abdomen: non-tender, soft Bowel: present Musculoskeletal: normal, strength/ROM intact Neuro: normal, sensory motor intact, A&Ox3 Triage Information Reviewed: Yes Vital Signs On Initial Exam: Initial Vitals Temp Pulse Resp BP Pulse Ox 98.6 F 100 18 151/88 95 01/17/18 22:39 01/17/18 22:39 01/17/18 22:39 01/17/18 22:39 01/17/18 22:39 Vital Signs Reviewed: Yes Diagnostics - Vital Signs Vital Signs Temp Pulse Resp BP Pulse Ox 01/17/18 22:39 98.6 F 100 18 151/88 95 - Laboratory Lab Statement: Any lab studies that have been ordered have been reviewed, and results considered in the medical decision making process. Allergic Reaction Course/Dx - Course Assessment/Plan: This patient is a 57 year old F presenting to ED with a chief complaint of a rash on her extremities since 2100 today. In the ED course the patient was given Deltasone. The patient is diagnosed with an allergic reaction. The patient is instructed to follow up with Dr. Black in the morning. - Diagnoses Differential Diagnosis/HQI/PQRI: Positive: Erythema Multiforme, Local Allergic Reaction, Chiu-Johnsons Syndrome, Urticaria Provider Diagnoses: Allergic reaction - Provider Notifications Discussed Care Of Patient With: Renae Black Time Discussed With Above Provider: 23:20 Instructed by Provider To: Other - Consulted Dr. Black (internal medicine) at 2320 who said that the vanco should be stopped and will call the pt in the morning. Discharge - Discharge Plan Condition: Stable Disposition: HOME Prescriptions: predniSONE TAB* [Deltasone TAB*] 50 mg PO ONCE #4 tab Patient Education Materials: General Allergic Reaction (ED) Referrals: Renae Black MD [Medical Doctor] - 3 Days (Follow up with Dr. Black within 3 days. ) Additional Instructions: RETURN TO THE EMERGENCY DEPARTMENT FOR CHANGING OR WORSENING SYMPTOMS. The documentation as recorded by the Jaskaran resendez Sixian accurately reflects the service I personally performed and the decisions made by me, Hiram Rodriguez.
== END 2018-01-17 23:43 | disposition home or self-care (01) ==
LOC: ED 22:37
DX: T78.40XA Allergy, unspecified, initial encounter (principal); F17.210 Nicotine dependence, cigarettes, uncomplicated
CPT/HCPCS: 99282; J7512

== ENCOUNTER 2021-10-10 12:04 | Observation (INO) ==
[~2021-10-10 12:04] MED LIST: Buffered Lidocaine 1% SYRIN 1 ml INTRADERM ONE; DiMENhydriNATE IV 50 mg/ml 1 ml VIAL IV PUSH ONE; HYDROcodone/ACETAMIN 5/325 mg TAB PO PRN; Ketamine HCL 50 mg/ml 10 ml VIAL (500 MG) ONE; Lactated Ringers 1000 ml BAG 1,000 ML IV SCH; Lidocaine 2% PF 5 ML VIAL ONE; Metoclopramide 5 MG/ML VIAL (10 mg) IV PRN; Naloxone 0.4 mg VIAL 0.4 mg/ml 1 ml VIAL IV PRN; Ondansetron 4 mg VIAL 2 MG/ML 2 ml VIAL IV PRN; Propofol 10 MG/ML 20 ML BTL ONE; fentaNYL 100 mcg/2 ml 50 MCG/ML VIAL IV PRN
[2021-10-10] MEDS ORDERED: ceFAZolin 2 GM in NS PREMIX 2 GM/100 ML BAG IVPB ONE (12:40)
[2021-10-10] MEDS ORDERED: DiMENhydriNATE IV 50 mg/ml 1 ml VIAL ONE (12:40)
[2021-10-10] MEDS ORDERED: Triamcinolone Acetonide 40 mg VIAL 40 mg/ml 1 ml VIAL ONE (13:28)
[2021-10-10] MEDS ORDERED: Ropivacaine 5 MG/ML 20 ML VIAL 0.5% (100 MG) ONE ×2 (13:28→16:48)
[2021-10-10] MEDS ORDERED: Bupivacaine 0.5% 50 ML MDV VIAL ONE (14:17)
[2021-10-10] MEDS ORDERED: Midazolam 2 mg/2 ml VIAL 1 mg/ml 2 ml VIAL (2 mg) ONE ×3 (14:17→15:32)
[2021-10-10] MEDS ORDERED: Ondansetron 4 mg VIAL 2 MG/ML 2 ml VIAL ONE (15:16)
[2021-10-10] MEDS ORDERED: Lactulose 30 ml UDC PO PRN (15:25)
[2021-10-10] MEDS ORDERED: diPHENhydraMINE 25 mg TAB PO PRN (15:25)
[2021-10-10] MEDS ORDERED: diPHENhydraMINE IV 50 MG/ML 1 ml VIAL (BENADRYL) IV PRN (15:25)
[2021-10-10] MEDS ORDERED: Ondansetron ODT 4 mg TAB 4 MG TAB PO PRN (15:25)
[2021-10-10] MEDS ORDERED: Morphine 2 MG/ML SYRINGE IV PRN (15:25)
[2021-10-10] MEDS ORDERED: Ondansetron 4 mg VIAL 2 MG/ML 2 ml VIAL IV PRN (15:25)
[2021-10-10] MEDS ORDERED: Magnesium Hydroxide LIQ 30 ML UDC PO PRN (15:25)
[2021-10-10] MEDS ORDERED: Propofol 10 MG/ML 20 ML BTL ONE ×2 (15:34→16:24)
[2021-10-10] MEDS ORDERED: fentaNYL 100 mcg/2 ml 50 MCG/ML VIAL ONE (15:36)
[2021-10-10] MEDS ORDERED: HYDROmorphone 1 MG/1 ML SYRINGE ONE (16:02)
[2021-10-10] MEDS: Magnesium Hydroxide LIQ 30 ML UDC PO SCH (22:06)
[2021-10-10] MEDS: Lactated Ringers 1000 ml BAG 1,000 ML IV SCH (22:14)
[2021-10-10] MEDS: ceFAZolin 1 GM ADVAN 1 GM in NS 0.9% 50 ML 50 ML IVPB SCH (22:19)
[2021-10-11] MEDS: Lactated Ringers 1000 ml BAG 1,000 ML IV SCH (05:35)
[2021-10-11] MEDS: ceFAZolin 1 GM ADVAN 1 GM in NS 0.9% 50 ML 50 ML IVPB SCH ×2 (05:38→13:27)
[2021-10-11 06:50] LABS: Hematocrit 32 % (35-47); Hemoglobin 10.9 g/dL (12.0-16.0); Mean Platelet Volume 7.4 fL (7.4-10.4); Platelet Count 209 10^3/uL (150-450)
[2021-10-11 07:07] LABS: Potassium 4.7 mmol/L (3.5-5.0)
[2021-10-11 08:04] VITALS: BP 102/67
[2021-10-11] MEDS: Magnesium Hydroxide LIQ 30 ML UDC PO SCH (08:35)
[2021-10-11] MEDS ORDERED: Vitamin THERAPEUTIC TAB PO SCH (09:00)
== END 2021-10-11 14:38 | disposition home or self-care (01) ==
LOC: OR 12:04 → SSU 12:04 → EDSTATUS 15:30 → SSU 18:59
PROVIDERS: ADMIT Orthopaedic Surgery Adult Reconstructive Orthopaedic Surgery; ATTEND Orthopaedic Surgery Adult Reconstructive Orthopaedic Surgery